=== PATIENT | female | born 1935 | race Caucasian/White ===

== ENCOUNTER → 2017-03-10 | Outpatient (CLI) | payer OTHER, BC ==
[~2017-03-10] MED LIST: ACIPHEX 20 MG T20 M1; ACIPHEX 20 MG T20 MG PO; ASPIR 8181 MG PO; ASPIRIN EC325 M1; ASPIRIN EC81 M1 PO; AZITHROMYCIN 2250 MG PO; COUMADIN 5 MG TA5 M1 PO; ENOXAPARIN80 MG/0.1 SUBQ; FELODIPINE ER10 MG PO; FERREX 150 PLU1 EAC1 PO; HYDROCHLOROTHIA25 M1 PO; IRON325 PO; KLOR-CON 1010 MEQ PO; LEVOTHYROXIN0.125 M1; LEVOTHYROXINE 0.1 MG PO; LISINOPRIL20 MG PO; LOPRESSOR50 PO; MAG DELAY64 MG PO; MAGOX 400400 MG PO; PLAVIX 75 MG TA75 M1 PO; PROTONIX 20 MG20 M1 PO; SYSTANE 0.3-0.1 EACH OPHTHALMIC; VITAMIN B-12500 MCG PO; WELCHOL 625 MG625 M1 PO; XANAX 0.5 MG0.5 MG PO
== END ==
LOC: RAD 01:35
DX: Z12.31 Encounter for screening mammogram for malignant neoplasm of breast (principal)

== ENCOUNTER → 2017-03-14 | Outpatient (CLI) | payer OTHER, BC | LOC: ULTRA 09:19 | DX: N60.01 Solitary cyst of right breast (principal) ==

== ENCOUNTER → 2017-07-15 | Outpatient (CLI) | payer OTHER, BC | LOC: RAD 08:08 | DX: R91.1 Solitary pulmonary nodule (principal); N17.9 Acute kidney failure, unspecified; I10 Essential (primary) hypertension; K21.9 Gastro-esophageal reflux disease without esophagitis; E78.5 Hyperlipidemia, unspecified; I69.398 Other sequelae of cerebral infarction; Z90.49 Acquired absence of other specified parts of digestive tract; Z90.710 Acquired absence of both cervix and uterus; Z87.891 Personal history of nicotine dependence ==

== ENCOUNTER 2019-06-03 08:56 | Inpatient (IN) | payer OTHER, BC ==
[~2019-06-03] VITALS: Ht 157.5 cm; Wt 79.1 kg
[~2019-06-03 08:56] MED LIST changes: -LEVOTHYROXINE 0.1 MG PO; +LEVOTHYROXINE88 MCG PO
[2019-06-03 08:57] VITALS: BP 230/105
[2019-06-03 10:03] LABS: ABSOLUTE NEUTROPHILS 3.5 thou/uL (1.4-8.2); EOSINOPHILS 2.2 % (0.0-3.0); HEMOGLOBIN 12.1 gm/dL (12.0-15.0); LYMPHOCYTES 24.4 % (24.0-44.0); MCH 27.4 pg (26.0-34.0); MCHC 31.7 g/dL (28.0-37.0); MCV 86.2 fL (80.0-100.0); MONOCYTES 8.8 % (1.0-8.0); PLATELET COUNT 274 thou/uL (150-400); POLYS 63.6 % (36.0-66.0); RBC 4.41 mil/uL (4.20-5.00); RDW 15.3 % (10.5-14.5); WBC 5.5 thou/uL (4.0-11.0)
[2019-06-03 10:20] LABS: APTT 30.2 Seconds (24.5-32.8); PROTIME 9.8 Seconds (9.3-11.4)
[2019-06-03 10:23] LABS: CALCIUM 9.6 mg/dL (8.5-10.1); CREATININE 1.2 mg/dL (0.6-1.0); POTASSIUM 4.6 mmol/L (3.5-5.1)
[2019-06-03 10:33] LABS: ALBUMIN 3.1 g/dL (3.4-5.0); MAGNESIUM 1.6 mg/dL (1.8-2.4); TOTAL BILIRUBIN 0.4 mg/dL (<0.1-1.0); TOTAL PROTEIN 6.5 g/dL (6.4-8.2); TROPONIN-I 0.13 ng/mL (<0.06)
[2019-06-03] MEDS ORDERED: ELIQUIS5 MG PO (10:42)
[2019-06-03] MEDS ORDERED: COLESTIPOL HCL1 G1 PO (10:43)
[2019-06-03] MEDS ORDERED: ZETIA10 MG PO (10:43)
[2019-06-03] MEDS ORDERED: PRESERVISION T1 EACH PO (10:44)
[2019-06-03] MEDS ORDERED: ACIPHEX 20 MG T20 MG PO (10:52)
[2019-06-03 13:20] LABS: TSH 6.307 uIU/mL (0.358-3.740)
--- NOTE | 2019-06-03 14:18 | NUR ---
PATIENT ADMITTED TO ROOM AT THIS TIME. RESPIRATIONS ARE NON LABORED. ON ROOM AIR. PLEASANT COOPERATIVE WITH CARE. NO COMPLAIN OF PAIN AT THIS TIME. WILL CONT WITH PLAN OF CARE.
--- NOTE | 2019-06-03 15:55 | 2DMMODE ---
[facility] [address] [place] [address] 2 D/M-MODE ECHOCARDIOGRAM Name: SHEYLA CID BRIANNA Room #: 170-24 ADM IN ..#: [id number] Admission: 06/03/19 Attend Phys: Ernesto Hayes MD Discharge: Date of : 37 Report #: [id number] THIS REPORT FOR: //name// APPROVED REPORT Study performed: 06/03/2019 12:48:38 EXAM: Comprehensive 2D, Doppler, and color-flow Echocardiogram Patient Location: ER Room #: 6 Status: routine BSA: 1.79 HR: 6 bpm BP: 166/60 mmHg Rhythm: NSR Other Information Study Quality: Good Indications COPD Dyspnea Elevated Troponin Hypertension/HDD 2D Dimensions RVDd: 32.17 mm IVSd: 8.48 (7-11mm) LVOT Diam: 19.99 (18-24mm) LVDd: 49.32 mm PWd: 8.46 (7-11mm) Ascending Ao: 31.35 (22-36mm) LVDs: 34.41 (25-40mm) Aortic Root: 30.21 mm IVC: 18.00 mm Volumes Left Atrial Volume (Systole) Single Plane 4CH: 47.59 mL Single Plane 2CH: 53.04 mL LA ESV Index: 31.00 mL/m2 Aortic Valve AoV Peak Jose Francisco.: 1.75 m/s AO Peak Gr.: 12.27 mmHg LVOT Max P.20 mmHg LVOT Max V: 1.02 m/s LURDES Vmax: 1.84 cm2 Mitral Valve [facility] [address] [address] 2 D/M-MODE ECHOCARDIOGRAM Name: SHEYLA CID BRIANNA Room #: 170-24 [facility] IN [facility].#: [id number] Admission: 06/03/19 Attend Phys: Ernesto Hayes MD Discharge: Date of : 36 Report #: [id number] E/A Ratio: 1.5 MV Decel. Time: 179.28 ms MV E Max Jose Francisco.: 1.18 m/s MV A Jose Francisco.: 0.81 m/s MV PHT: 51.99 ms IVRT: 69.20 ms Pulmonary Valve PV Peak Jose Francisco.: 1.03 m/s PV Peak Gr.: 4.27 mmHg Pulmonary Vein P Vein S: 0.48 m/s P Vein A: 0.38 m/s P Vein D: 0.62 m/s P Vein A Dur.: 143.0 msec P Vein S/D Ratio: 0.77 Left Ventricle The left ventricle is normal size. There is normal LV segmental wall motion. There is normal left ventricular wall thickness. The left ventricular systolic function is normal. The left ventricular ejection fraction is within the normal range. LVEF is 55-60%. The left ventricular diastolic function is abnormal. Right Ventricle The right ventricle is normal size. The right ventricular systolic function is normal. Atria The left atrium size is normal. The right atrium size is normal. Aortic Valve The aortic valve is trileaflet, mildly sclerotic No aortic regurgitation is present. There is no aortic valvular stenosis. Mitral Valve Mild mitral annular calcification Moderate mitral regurgitation. No evidence of mitral valve stenosis. Tricuspid Valve The tricuspid valve is normal in structure. There is no tricuspid valve regurgitation noted. Pulmonic Valve The pulmonary valve is normal in structure. There is no pulmonic valvular regurgitation. [facility] [place] [address] 2 D/M-MODE ECHOCARDIOGRAM Name: SHEYLA CID BRIANNA Room #: 170-24 ADM IN M.R.#: [id number] Admission: 06/03/19 Attend Phys: Ernesto Hayes MD Discharge: Date of : 36 Report #: [id number] Great Vessels The aortic root is normal in size. IVC is normal in size and collapses >50% with inspiration. Pericardium There is no pericardial effusion. <Conclusion> The left ventricular systolic function is normal. There is normal LV segmental wall motion. LVEF is 55-60%. The aortic valve is trileaflet, mildly sclerotic. No aortic regurgitation or stenosis Mild mitral annular calcification. Moderate mitral regurgitation. There is no pericardial effusion. <ELECTRONICALLY SIGNED> By: Jayant Banks MD, FACC 06/03/19 1555 1555 1555 Jayant Banks MD, [facility] /INF
[2019-06-03 19:16] VITALS: BP 193/67
[2019-06-04 00:19] VITALS: BP 193/65
[2019-06-04 03:56] VITALS: BP 181/59
[2019-06-04 04:00] LABS: ABSOLUTE NEUTROPHILS 5.6 thou/uL (1.4-8.2); BASOPHILS 0.3 % (0.0-2.0); HEMOGLOBIN 10.9 gm/dL (12.0-15.0); LYMPHOCYTES 8.1 % (24.0-44.0); MCH 27.6 pg (26.0-34.0); MCV 86.1 fL (80.0-100.0); MONOCYTES 0.7 % (1.0-8.0); PLATELET COUNT 257 thou/uL (150-400); POLYS 90.9 % (36.0-66.0); RBC 3.95 mil/uL (4.20-5.00); RDW 15.3 % (10.5-14.5); WBC 6.2 thou/uL (4.0-11.0)
[2019-06-04 04:07] LABS: ANION GAP 8 mmol/L (7-16); BUN 25 mg/dL (7-18); CALCIUM 8.9 mg/dL (8.5-10.1); CHLORIDE 107 mmol/L (98-107); CHOLESTEROL 214 mg/dL (<200); CO2 23 mmol/L (21-32); CREATININE 1.3 mg/dL (0.6-1.0); GLUCOSE 145 mg/dL (74-106); HDL CHOLESTEROL 68 mg/dL (>40); LDL CHOLESTEROL 132 mg/dL (<100); POTASSIUM 5.3 mmol/L (3.5-5.1); SODIUM 138 mmol/L (136-145); TC:HDL 3.1 Ratio (Not establshd); TRIGLYCERIDE 73 mg/dL (<150); TROPONIN-I 0.25 ng/mL (<0.06); VLDL 15 mg/dL (<40)
[2019-06-04 04:09] LABS: SERUM ASSESSMENT Clear
--- NOTE | 2019-06-04 04:49 | NUR ---
ASSUMED PT CARE AT 1900. DAUGTHER AT BEDSIDE PT IS ALERT AND ORIENTED. NO SIGN OF DISTRESS NOTED. PT IS LAYING IN BED RESTING COMFORTABLY. ASSESSMENT COMPLETED AND DOCUMENTED. VITAL SIGNS STABLE WITH THE EXCEPTION OF ELEVATED BLOOD PRESSURE. NO NOTIFIED. METOPROLOL ADMINISTERED. OTHER SCHEDULED MEDS ADMINSTERED TO PT. BLOOD PRESSURE RECHECKED. STILL ELEVATED, HYDRALAZINE ADMINISTERED. PT COMPLAINED OF CHEST PAIN AFTER BREATHING TREATMENT IS ADMINISTERED. PT REFUSES ANYMRE BREATHING TREATMENT. PT IS STABLE THROUGHOUT THE NIGHT. DENIES ANY FURTHER NEEDS AT THIS TIME.
[2019-06-04 06:06] VITALS: BP 171/52
[2019-06-04 07:20] VITALS: BP 176/69
--- NOTE | 2019-06-04 08:33 | EKG ---
[address] [address] ELECTROCARDIOGRAM REPORT Name: SHEYLA CID BRIANNA Room #: 202-P ADM IN M.R.#: [id number] Admission: 06/03/19 Attend Phys: Ernesto Hayes MD Discharge: Date of : 36 Report #: [id number] THIS REPORT FOR: //name// [facility] ED Test Date: 2019-06-03 Test Time: 09:15:07 Pat Name: SHEYLA CID Department: Room: 202 Gender: F Senior Telecommunications Engineer: samara : 1935 Requested By: Saeed Murphy Order Number: [id number] MD: Jayant Banks Measurements Intervals [place] Rate: 71 P: 98 CT: 195 QRS: 51 QRSD: 126 T: 26 QT: 394 QTc: 429 Interpretive Statements Sinus arrhythmia Right bundle branch block Compared to ECG 10/09/2015 14:31:05 Right bundle-branch block now present Atrial premature complex(es) no longer present Electronically Signed On 06-04-2019 8:33:08 CDT by Jayant Banks [email or web address] <ELECTRONICALLY SIGNED> By: Jayant Banks MD, FAC 06/04/19 0833 Jayant Banks MD, [facility] /EPI
--- NOTE | 2019-06-04 08:49 | EKG ---
[address] [place] [address] ELECTROCARDIOGRAM REPORT Name: SHEYLA CID BRIANNA Room #: 202-P ADM IN M.R.#: [id number] Admission: 06/03/19 Attend Phys: Ernesto Hayes MD Discharge: Date of : 36 Report #: [id number] THIS REPORT FOR: //name// [facility] Test Date: 2019-06-04 Test Time: 07:19:43 Pat Name: SHEYLA CID Department: Room: 202 P Gender: F Branch Lending Manager: SHYLA : 1935 Requested By: Shae Schaefer Order Number: [id number] MD: Jayant Banks Measurements Intervals [place] Rate: 76 P: 66 CO: 200 QRS: 28 QRSD: 133 T: 3 QT: 408 QTc: 459 Interpretive Statements Sinus rhythm Right bundle branch block Compared to ECG 10/09/2015 14:31:05 No significant change was found Electronically Signed On 06-04-2019 8:49:39 CDT by Jayant Banks [email or web address] <ELECTRONICALLY SIGNED> By: Jayant Banks MD, [facility] 06/04/19 0849 8 8 Jayant Banks MD, FAC /EPI
[2019-06-04 12:05] VITALS: BP 178/62
--- NOTE | 2019-06-04 16:11 | NUR ---
Chart reviewed and case discussed with the care team. Technology Consultant visited with the pt and dtr tonie at bedside. Pt concerned about stress test and if medicare would pay for it. Questions about medicare benefits answered and support provided. Pt is a&ox4 and indicates that she lives indep with her spouse. She does all of her own adl's and iadl's for her spouse as well. She reports that he can manage on his own for a day or two. She is hoping to dc home soon. She denies any dc needs or concerns and her dtr is very involved. Cm role introduced. Will remain available should dc needs arise.
--- NOTE | 2019-06-04 17:39 | NUR ---
PT CARE ASSUMED APPROX 1045. ASSESSMENTS CHARTED. PT DENIES PAIN AND SOA. BP ELEVATED MOST OF SHIFT. PT WAS NPO AND NUC MED ADVISED AGAINST GIVING ALL BP MEDS. MEDS CAUGHT UP THIS EVENING. WILL MONITOR BP FOR IMPROVEMENT. VS OTHERWISE STABLE. DAUGHTER AT BEDSIDE MOST OF DAY. BOTH GIVEN CLINICAL UPDATES AND DENY QUESTIONS OR CONCERNS REGARDING POC. PT TOLERATING POC. UP WITH SBA. NO DISTRESS NOTED.
[2019-06-04 20:27] VITALS: BP 168/58
[2019-06-05] VITALS (7 sets, daily range): BP systolic 168–189; BP diastolic 46–79
[2019-06-05 03:59] LABS: HEMATOCRIT 35.5 % (37.0-47.0); HEMOGLOBIN 11.3 gm/dL (12.0-15.0); MCH 27.3 pg (26.0-34.0); MCHC 31.8 g/dL (28.0-37.0); RBC 4.13 mil/uL (4.20-5.00); RDW 15.4 % (10.5-14.5); WBC 9.7 thou/uL (4.0-11.0)
[2019-06-05 04:06] LABS: CREATININE 1.4 mg/dL (0.6-1.0); POTASSIUM 4.7 mmol/L (3.5-5.1)
--- NOTE | 2019-06-05 05:50 | NUR ---
ASSUMED PT CARE AT 1900. VSS EXCEPT BP. PT A&0X4. ASSESSMENTS AND MEDS GIVEN DOCUMENTED, PT REFUSED SCHEDULED BREATHING TX, STATED SHE DOESNT LIKE THE WAY IT MAKES HER FEEL. PT BP HOWEVER IS TRENDING DOWN, TWO DOSES OF HYDRALIZINE WAS GIVEN THIS SHIFT. PT HAD AN ANXIOUS/TEARFUL MOMENT AROUND 2AM THIS MORNIRNG, HYDROXYZINE GIVEN AND PT SLEPT FOR THE REST OF THE NIGHT, PT IS STABLE, WILL CONTINUE TO MONITOR PER POC.
--- NOTE | 2019-06-05 16:19 | NUR ---
PT CARE ASSUMED APPROX 0700. PT ASSESSMENT CHARTED. DENIES PAIN AND SOA. VSS. UP WITH STEADY GAIT. FAMILY AT BEDSIDE MOST OF SHIFT. POC UPDATES GIVEN. ALL DENY QUESTIONS AND CONCERNS REGARDING POC. PT TOLERATING POC. NO DISTRESS NOTED.
[2019-06-06] VITALS (7 sets, daily range): BP systolic 120–192; BP diastolic 53–69
--- NOTE | 2019-06-06 03:39 | NUR ---
ASSESSMENT DOCUMENTED.PT BEEN RESTINGN IN NO ACUTE DISTRESS.A/OX4.VSS.RA W/O RESP DISTRESS.SR ON MONITOR.AMBULATED TO BR,VOIDING ADEQUATELY.PT DENIES PAIN OR ANY DISTRESS AT THIS TIME.BLOOD PRESSURE TREATED WITH PRN MEDS.WILL CONTW/POC.
[2019-06-06 04:53] LABS: CALCIUM 9.2 mg/dL (8.5-10.1); CREATININE 1.4 mg/dL (0.6-1.0); MAGNESIUM 1.9 mg/dL (1.8-2.4); POTASSIUM 4.8 mmol/L (3.5-5.1)
--- NOTE | 2019-06-06 17:10 | NUR ---
PT CARE ASSUMED APPROX 0700. ASSESSMENTS CHARTED. PT DENIES PAIN AND SOA. BP ELEVATED. CHANGES TO POC MADE THIS AM TO TREAT HTN BUT PT BP REMAINS ELEVATED. WILL UTILIZE PRN MEDS OPTIONS FOR MANAGEMENT AT THIS POINT. PT TOLERATING POC AND DENIES QUESITONS AND CONCERNS REGARDING. NO DISTRESS NOTED.
[2019-06-07 04:04] VITALS: BP 171/53
--- NOTE | 2019-06-07 05:06 | NUR ---
ASSESSMENTS CHARTED, MEDS GIVEN CHARTED. PATIENT STARTED SHIFT WITH IV IN LEFT AC WHICH LEAKED WHEN USED. PATIENT HAD NO VISIBLE OR PALPITABLE VEINS, SO WE HAD TO WAIT FOR ER STAFF TO COME UP WITH THE SONOGRAM MACHINE TO PLACE A NEW IV IN THE RIGHT AC. HYDRALAZINE GIVEN FOR ELEVATED BLOOD PRESSURE. PATIENT REQUESTED HYDROXAZINE AGAIN. RECEIVED ORDER FROM SONNY FOR DAILY HYDROXAZINE AT HS. PATIENT ON LASIX THERAPY, DIURESING WELL. PLAN FOR STRESS TEST TODAY.
[2019-06-07 06:03] LABS: CALCIUM 9.6 mg/dL (8.5-10.1); CREATININE 1.6 mg/dL (0.6-1.0); POTASSIUM 4.7 mmol/L (3.5-5.1)
[2019-06-07 07:10] VITALS: BP 195/61
[2019-06-07 11:15] VITALS: BP 154/54
[2019-06-07 14:29] LABS: CALCIUM 9.7 mg/dL (8.5-10.1); CREATININE 1.8 mg/dL (0.6-1.0); POTASSIUM 5.3 mmol/L (3.5-5.1)
[2019-06-07 15:40] VITALS: BP 161/49
--- NOTE | 2019-06-07 16:35 | NUR ---
PT CARE ASSUMED APPROX 0700. ASSESSMENTS CHARTED. PT DENIES PAIN AND SOA. BP ELEVATED DESPITE CHANGES TO POC. PT WAS TO DISCHARGE THIS SHIFT BUT NO ORDERS WERE PUT IN. CALL OUT TO DR ANDERSON AT THIS TIME TO CLARIFY IF PT IS TO GO. PT UP WITH STEADY GAIT. VS OTHERWISE STABLE. DAUGHTER AT BEDSIDE. NO DISTRESS NOTED.
--- NOTE | 2019-06-07 17:56 | NUR ---
PT WANTING NEW IVF STARTED AFTER HER SHOWER. FINISHING DINNER DOWN THEN WILL SHOWER. IF END OF SHIFT APPROACHES BEFORE IVF INITIATION THIS NURSE WILL PASS ON TO BRIAN RN.
[2019-06-07 20:54] VITALS: BP 162/51
[2019-06-08] VITALS (8 sets, daily range): BP systolic 103–201; BP diastolic 35–73
--- NOTE | 2019-06-08 02:52 | NUR ---
ASSESSMENTS CHARTED, MEDS GIVEN CHARTED. 1700 FLUIDS WERE NOT STARTED THE PATIENT WANTED TO TAKE A SHOWER PRIOR TO STARTED IT. IT WAS NOT STARTED ON DAY SHIFT. WHEN THE ACCESS WAS FLUSHED, IT WAS FOUND TO BE CLOTTED OFF. NO SITES WERE IDENTIFIED TO START A NEW IV AND THE ELEVATOR TROUBLESHOOTER WAS CALLED. SHE OK'D ER TO COME UP AND START A NEW IV USING THE SONIGRAM MACHINE. IV MEDS HAVE YET TO BE GIVEN WAITING ON ACCESS. PATIENT IS PLANNING ON BEING DISCHARGED IN THE AM.
[2019-06-08 04:58] LABS: CALCIUM 9.5 mg/dL (8.5-10.1); CREATININE 1.8 mg/dL (0.6-1.0); MAGNESIUM 1.8 mg/dL (1.8-2.4)
[2019-06-08 05:00] LABS: POTASSIUM 4.2 mmol/L (3.5-5.1)
[2019-06-08 14:36] LABS: POTASSIUM 3.7 mmol/L (3.5-5.1)
[2019-06-08 15:20] LABS: CALCIUM 8.5 mg/dL (8.5-10.1); CREATININE 1.9 mg/dL (0.6-1.0)
--- NOTE | 2019-06-08 17:47 | NUR ---
ASSUMMED PT CARE AT APPROXIMATELY 0700. PT A&O X4. ASSESSMENT CHARTED. FALL PRECAUTIONS IN PLACE. PT DENIES HAVING CHEST PAIN. PT DENIES HAVING SOB. PT DENIES HAVING ACUTE PAIN. VITAL SIGNS STABLE. MONITORING BP. PT'S BP ELEVATED IN AM. AFTER MORNING MEDICATIONS, PT'S BP DECREASE TO STABLE VALUE. PT'S BP HAS REMAINED STABLE. STATED TO CONTINUE MONITORING BP. EDUCATED PT AND PT'S FAMILY OF POC. PT AND PT'S FAMILY STATED UNDERSTANDING AND DENIED HAVING FURTHER QUESTIONS. PT COMFORTABLE IN BED. PT DENIES HAVING FURTHER CONCERNS.
[2019-06-09 04:00] VITALS: BP 132/40
--- NOTE | 2019-06-09 05:18 | NUR ---
PT ALERT AND ORIENTED X4. PT PROGRESSING TOWARDS GOAL.
[2019-06-09 05:27] LABS: ALBUMIN 2.4 g/dL (3.4-5.0); CREATININE 1.9 mg/dL (0.6-1.0)
[2019-06-09 07:20] VITALS: BP 151/67
[2019-06-09] MEDS ORDERED: ELIQUIS2.5 MG PO (09:14)
[2019-06-09] MEDS ORDERED: IPRAT-ALBUT 0.5-3 ML INH (09:14)
[2019-06-09] MEDS ORDERED: HYDRALAZINE 5050 MG PO (09:15)
[2019-06-09] MEDS ORDERED: NITROGLYCERIN0.4 MG SUBLING (09:16)
[2019-06-09] MEDS ORDERED: LOPRESSOR50 PO (09:17)
[2019-06-09] MEDS ORDERED: TYLENOL325 MG PO (09:18)
[2019-06-09] MEDS ORDERED: XANAX 0.5 MG0.5 M1 PO (09:19)
[2019-06-09] MEDS ORDERED: PREDNISONE 20 M20 MG PO (09:22)
[2019-06-09] MEDS ORDERED: LASIX 40 MG TAB40 MG PO (10:43)
[2019-06-09 12:10] VITALS: BP 141/54
[2019-06-09 12:34] VITALS: BP 141/54
--- NOTE | 2019-06-09 14:17 | NUR ---
ASSUMMED PT CARE AT APPOXIMATELY 0700. PT A&O X4. ASSESSMENT CHARTED. FALL PRECAUTIONS IN PLACE. PT DENIES HAVING CHEST PAIN. PT DENIES HAVING SOB. PT DENIES HAVING ACUTE PAIN. VITAL SIGNS STABLE. PT AMBULATES STEADY/INDEPENDENT. IV DC. TELE DC. PT DISCHARGING HOME WITH SELF CARE. PT AND FAMILY RECEIVED DISHCARGE EDUCATION. PT AND FAMILY STATED UNDERSTANDING AND DENIED HAVING FURTHER QUESTIONS. PT RECEIVING HOSPITAL TRANSPORT TO TRANSFER PT OFF UNIT. PT DENIES HAVING FURTHER CONCERNS. PT AWAITING HOSPITAL TRANSPORT TO ARRIVE.
--- NOTE | 2019-06-17 07:41 | HC ---
[facility] [place] [address] CONSULTATION Name: SHEYLA CID Room #: 202-P [facility] IN M.R.#: [id number] Admission: 06/03/19 Attend Phys: Ernesto Hayes MD Discharge: 06/09/19 Date of : 36 Report #: [id number] THIS REPORT FOR: //name// CC: Ernesto Ennis DATE OF SERVICE: 06/09/2019 REASON FOR CONSULTATION: Elevated creatinine. REASON FOR PRESENTATION: Shortness of breath. HISTORY OF PRESENT ILLNESS: This is an 84-year-old with extensive past medical history including hypertension, hyperlipidemia, remote history of CVA. She is also known to have DVT, PE with COPD. She has history of hypothyroidism. She presented to the hospital reporting that she has been having some epigastric pain that has been progressing over the few days before her presentation. She also had some shortness of breath. This was associated with respiratory distress that woke her from sleep. She denies any previous similar episodes. No cough or hemoptysis. No recent upper respiratory tract infection symptoms. On presentation to the Emergency Room, the patient was found to be in hypertensive urgency. She had a creatinine value of 1.20 on her presentation. She also reported that she had some issues with chronic bilateral lower extremity swelling. The patient was at another facility a few days ago and left that facility because she was unhappy with her care. She saw her primary care physician a few days before her presentation and was started on some blood pressure medication. With the blood pressure coming down from 224 on her presentation to around 130 range yesterday, her creatinine started to go up from a baseline of 1.2-1.9 as of this morning. PAST MEDICAL HISTORY: 1. Hypertension. 2. Cerebrovascular accident. 3. Left knee replacement. 4. Hysterectomy. 5. Cholecystectomy. 6. Hyperlipidemia. 7. Barajas esophagus. 8. Peripheral vascular disease. 9. Deep venous thrombosis and pulmonary embolism back in 2013. MEDICATIONS: 1. Felodipine. 2. Lisinopril. 3. Levothyroxine. 4. Metoprolol. [facility] [address] [place] [address] CONSULTATION Name: SHEYLA CID MILLWOOD Room #: 202-P [facility].#: [id number] Admission: 06/03/19 Attend Phys: Ernesto Hayes MD Discharge: 06/09/19 Date of : 36 Report #: [id number] 5. Eliquis. 6. Colestipol. 7. Ezetimibe. 8. Aripiprazole. ALLERGIES: LATEX, SULFA. SOCIAL HISTORY: She denies drug or alcohol abuse. She is a housewife. REVIEW OF SYSTEMS: GENERAL: No fever or chills. CARDIOVASCULAR: No chest pain; however, significant shortness of breath. PULMONARY: As per the history of present illness. GASTROINTESTINAL: No nausea or vomiting. GENITOURINARY: No frequency, no urgency. SKIN: No rash or ulcerations. NEUROLOGICAL: No headache, no dizziness, no loss of consciousness. FAMILY HISTORY: Significant for hypertension. PHYSICAL EXAMINATION: VITAL SIGNS: Blood pressure is 151/42, temperature is 36.5. HEAD AND NECK: No jugular venous distention. CHEST: No crackles. CARDIOVASCULAR: No rub detected. ABDOMEN: Soft, nontender. LOWER EXTREMITIES: Trace edema. LABORATORY DATA: Reviewed. Creatinine is 1.9. Potassium is 4.0. UA is not available. Chest x-ray with no acute process. IMPRESSION AND PLAN: 1. Hypertensive urgency. 2. Acute kidney injury. 3. The patient's rise in creatinine is expected with the significant reduction in the blood pressure. This is all related to hemodynamic changes of the renal arteries. 4. Discontinue IV fluid. 5. Blood pressure reading seems to be acceptable for now. Avoid further reduction. She is currently maintained on Benicar, Norvasc, metoprolol, hydralazine and there is still some room for hydralazine to be titrated up. However, I will not do any further adjustment of her medications given the acute kidney injury. Once we stabilize her creatinine, we could further adjust her [address] [address] CONSULTATION Name: SHEYLA CID MILLWOOD Room #: [facility] IN M.R.#: [id number] Admission: 06/03/19 Attend Phys: Ernesto Hayes MD Discharge: 06/09/19 Date of : 36 Report #: [id number] blood pressure medication. Ideally, she should be on a thiazide diuretic for her blood pressure will beside the current blood pressure medications. <ELECTRONICALLY SIGNED> By: Daniel Salgado MD 06/17/19 0741 0923 0039 Daniel Salgado MD /nt
== END 2019-06-09 15:52 | disposition home or self-care (01) | DRG 190 ==
LOC: ER 08:56 → EROBS 11:57 → 2N 11:57 → ENTRNSPT 06-09 14:17 → EDTRNSPTSTS 06-09 14:18 → 2N 06-09 15:52
PROVIDERS: Emergency Medicine; Hospitalist; Internal Medicine; Nurse Practitioner; ADMIT Hospitalist
DX: J44.1 Chronic obstructive pulmonary disease with (acute) exacerbation (principal); E43 Unspecified severe protein-calorie malnutrition; N17.9 Acute kidney failure, unspecified; G93.49 Other encephalopathy; I50.30 Unspecified diastolic (congestive) heart failure; I13.0 Hypertensive heart and chronic kidney disease with heart failure and stage 1 through stage 4 chronic kidney disease, or unspecified chronic kidney disease; I16.0 Hypertensive urgency; E78.5 Hyperlipidemia, unspecified; K21.9 Gastro-esophageal reflux disease without esophagitis; M19.90 Unspecified osteoarthritis, unspecified site; Z96.652 Presence of left artificial knee joint; E83.42 Hypomagnesemia; I73.9 Peripheral vascular disease, unspecified; I48.0 Paroxysmal atrial fibrillation; Z66 Do not resuscitate; D64.9 Anemia, unspecified; N18.3 Chronic kidney disease, stage 3 (moderate); E03.9 Hypothyroidism, unspecified; F03.90 Unspecified dementia, unspecified severity, without behavioral disturbance, psychotic disturbance, mood disturbance, and anxiety; Z68.31 Body mass index [BMI] 31.0-31.9, adult; Z87.19 Personal history of other diseases of the digestive system; Z86.718 Personal history of other venous thrombosis and embolism; Z86.711 Personal history of pulmonary embolism; Z88.2 Allergy status to sulfonamides; Z88.8 Allergy status to other drugs, medicaments and biological substances; Z91.040 Latex allergy status; Z79.899 Other long term (current) drug therapy; Z90.710 Acquired absence of both cervix and uterus; Z90.49 Acquired absence of other specified parts of digestive tract; Z87.891 Personal history of nicotine dependence; I25.2 Old myocardial infarction; I69.320 Aphasia following cerebral infarction
CPT/HCPCS: 10081

== ENCOUNTER 2019-06-29 16:10 | Inpatient (IN) | payer OTHER, BC ==
[~2019-06-29] VITALS: Ht 157.5 cm; Wt 78.7 kg
[2019-06-29 16:10] VITALS: BP 192/81
[~2019-06-29 16:10] MED LIST changes: +COLESTIPOL HCL1 G1 PO; +ELIQUIS2.5 MG PO; +ELIQUIS5 MG PO; +HYDRALAZINE 5050 MG PO; +IPRAT-ALBUT 0.5-3 ML INH; +LASIX 40 MG TAB40 MG PO; +NITROGLYCERIN0.4 MG SUBLING; +PREDNISONE 20 M20 MG PO; +PRESERVISION T1 EACH PO; +TYLENOL325 MG PO; +XANAX 0.5 MG0.5 M1 PO; +ZETIA10 MG PO
--- NOTE | 2019-06-29 17:15 | NUR ---
LAB CALLED TO DRAW BLOOD FOR PT IV TEAM UNSUCCESSFUL
--- NOTE | 2019-06-29 18:51 | NUR ---
LAB CALLED AGAIN TO REQUEST FOR LAB DRAW. SPOKE WITH [facility] WHO STATES THEY WILL SEND SOMEONE TO DRAW
[2019-06-29 19:17] LABS: ABSOLUTE NEUTROPHILS 3.9 thou/uL (1.4-8.2); BASOPHILS 0.9 % (0.0-2.0); EOSINOPHILS 3.2 % (0.0-3.0); HEMATOCRIT 31.1 % (37.0-47.0); HEMOGLOBIN 10.1 gm/dL (12.0-15.0); LYMPHOCYTES 18.1 % (24.0-44.0); MCH 27.6 pg (26.0-34.0); MCHC 32.4 g/dL (28.0-37.0); MCV 85.3 fL (80.0-100.0); MONOCYTES 8.6 % (1.0-8.0); PLATELET COUNT 283 thou/uL (150-400); POLYS 69.2 % (36.0-66.0); RBC 3.65 mil/uL (4.20-5.00); RDW 15.4 % (10.5-14.5); WBC 5.7 thou/uL (4.0-11.0)
[2019-06-29 19:27] LABS: ANION GAP 8 mmol/L (7-16); BUN 28 mg/dL (7-18); CALCIUM 9.7 mg/dL (8.5-10.1); CHLORIDE 105 mmol/L (98-107); CO2 27 mmol/L (21-32); CREATININE 1.3 mg/dL (0.6-1.0); GLUCOSE 111 mg/dL (74-106); POTASSIUM 3.8 mmol/L (3.5-5.1); SODIUM 140 mmol/L (136-145)
[2019-06-29 19:31] LABS: APTT 30.8 Seconds (24.5-32.8)
[2019-06-29 19:37] LABS: ALBUMIN 2.9 g/dL (3.4-5.0); MAGNESIUM 1.4 mg/dL (1.8-2.4); SGOT 14 U/L (15-37); SGPT 26 U/L (30-65); TOTAL BILIRUBIN 0.4 mg/dL (<0.1-1.0); TOTAL PROTEIN 5.6 g/dL (6.4-8.2); TROPONIN-I <0.06 ng/mL (<0.06)
[2019-06-29 20:07] VITALS: BP 166/48
[2019-06-29 20:22] VITALS: BP 179/65
--- NOTE | 2019-06-29 20:24 | NUR ---
ED NURSE CALLED TO GIVE REPORT TO INPATIENT NURSE, WAS TOLD THE NURSE WAS IN ANOTHER ROOM AND WOULD HAVE TO CALL ME BACK
[2019-06-29 20:36] VITALS: BP 146/71
[2019-06-29] MEDS ORDERED: TORSEMIDE10 MG PO (22:59)
[2019-06-30 00:45] VITALS: BP 140/52
[2019-06-30 04:44] VITALS: BP 149/59
--- NOTE | 2019-06-30 05:22 | NUR ---
ASSUMED PT CARE AROUND 2100. PT NEW ADMIT FROM ED. ADMISSION COMPLETED AND ASSESSMENTS CHARTED. PT DTR BEDSIDE AND COPY OF MEDICATION LIST IS IN PT CHART. PT VSS AND NO C/O PAIN, SOB, OR N/V/D. PT SLEPT THRU NIGHT AND WILL CONTINUE TO MONITOR.
[2019-06-30 05:30] LABS: CALCIUM 9.1 mg/dL (8.5-10.1); CREATININE 1.4 mg/dL (0.6-1.0); MAGNESIUM 2.3 mg/dL (1.8-2.4); POTASSIUM 3.8 mmol/L (3.5-5.1)
[2019-06-30 05:39] LABS: HEMATOCRIT 26.8 % (37.0-47.0); HEMOGLOBIN 8.7 gm/dL (12.0-15.0); MCH 27.7 pg (26.0-34.0); MCHC 32.3 g/dL (28.0-37.0); MCV 85.5 fL (80.0-100.0); RBC 3.13 mil/uL (4.20-5.00); RDW 15.3 % (10.5-14.5); WBC 4.2 thou/uL (4.0-11.0)
[2019-06-30 07:53] VITALS: BP 153/58
--- NOTE | 2019-06-30 08:19 | EKG ---
[address] [address] ELECTROCARDIOGRAM REPORT Name: SHEYLA CID BRIANNA Room #: 212-P ADM IN M.R.#: [id number] Admission: 06/29/19 Attend Phys: Hu Kelly MD Discharge: Date of : 36 Report #: [id number] THIS REPORT FOR: //name// [facility] ED Test Date: 2019-06-29 Test Time: 16:27:42 Pat Name: SHEYLA CID Department: Room: 212 Gender: F Design Draftsman: WG : 1935 Requested By: Saeed Murphy Order Number: [id number] MD: Rios Hicks Measurements Intervals [place] Rate: 79 P: [place]: QRS: 37 QRSD: 128 T: 13 QT: 389 QTc: 447 Interpretive Statements Sinus rhythm with PACs RBBB Electronically Signed On 06-30-2019 8:19:30 [facility] by Rios Hicks [email or web address] <ELECTRONICALLY SIGNED> By: Rios Hicks MD 06/30/19818 1627 1627 Rios Hicks MD /RICCI
[2019-06-30 11:53] VITALS: BP 160/52
--- NOTE | 2019-06-30 11:57 | NUR ---
met with patient who resides at home with spouse in independent home. All needs on one level, a few steps from garage to main level. Patient reports uses no assistive device correctional captain and cont to drive. Dtr at bedside and discussed HH may be beneficial at dc to monitor if she retaining fluid and medication/vitals. Left patient list of home health providers, updated phys. Therapy evals in process. Her PCP is Dr Kiera Ennis. [facility] following
--- NOTE | 2019-06-30 12:15 | NUR ---
AAOX4. CALM, FLAT, COOPERATIVE. AFIB PER TELE. SOB WITH MINIMAL EXERTION. ADULT DTR VISITS. DR. ANDERSON HERE. WILL CONTINUE TO FOLLOW CLOSELY.
[2019-06-30 17:26] VITALS: BP 131/42
[2019-06-30 19:42] VITALS: BP 172/56
[2019-07-01 00:24] VITALS: BP 178/50
[2019-07-01 03:28] VITALS: BP 153/47
[2019-07-01 05:25] LABS: HEMATOCRIT 27.5 % (37.0-47.0); HEMOGLOBIN 8.8 gm/dL (12.0-15.0); MCH 27.8 pg (26.0-34.0); MCHC 32.1 g/dL (28.0-37.0); MCV 86.5 fL (80.0-100.0); RBC 3.18 mil/uL (4.20-5.00); RDW 15.5 % (10.5-14.5); WBC 4.3 thou/uL (4.0-11.0)
[2019-07-01 05:58] LABS: CALCIUM 9.5 mg/dL (8.5-10.1); CREATININE 1.5 mg/dL (0.6-1.0); POTASSIUM 3.6 mmol/L (3.5-5.1)
[2019-07-01 08:00] VITALS: BP 170/72
[2019-07-01 11:56] VITALS: BP 124/45
[2019-07-01 13:36] LABS: % SATURATION 7 % (20-39); IRON 23 ug/dL (50-170); TIBC 317 ug/dL (250-450)
[2019-07-01 16:00] VITALS: BP 149/76
--- NOTE | 2019-07-01 17:17 | NUR ---
PT ALERT AND ORIENTED. VSS. UP ADLIB IN THE ROOM. NPO AFTER MIDNIGHT. EGD IN AM. NO CONCERNS AT THIS TIME. WILL CONTINUE TO MONITOR.
[2019-07-01 19:32] VITALS: BP 154/46
[2019-07-02] VITALS (7 sets, daily range): BP systolic 139–182; BP diastolic 42–60
[2019-07-02 04:06] LABS: HEMATOCRIT 28.4 % (37.0-47.0); MCH 27.5 pg (26.0-34.0); MCHC 31.8 g/dL (28.0-37.0); MCV 86.3 fL (80.0-100.0); RBC 3.29 mil/uL (4.20-5.00); RDW 15.2 % (10.5-14.5); WBC 4.3 thou/uL (4.0-11.0)
[2019-07-02 04:28] LABS: CALCIUM 9.9 mg/dL (8.5-10.1); CREATININE 1.6 mg/dL (0.6-1.0); MAGNESIUM 1.7 mg/dL (1.8-2.4); POTASSIUM 3.5 mmol/L (3.5-5.1)
--- NOTE | 2019-07-02 05:26 | NUR ---
ASSUMED PT CARE AT 1900. VSS. PT A&0X4. PT HAD AN UNEVENTFUL NIGHT. SHE SLEPT THROUGH THE NIGHT. NO COMPLAINTS OF RESPIRATORY DISTRESS, CONSENT SIGNED FOR EGD THIS AM. PT HAS BEEN NPO SINCE MIDNIGHT. PT IS STABLE, WILL CONTINUE TO MONITOR.
--- NOTE | 2019-07-02 15:00 | NUR ---
EGD today then possible dc to home. Pt up walking in the hallway and visiting with her family. No hh referral indicated at this time. Care team recommendations are for outpt f/u at dc.
--- NOTE | 2019-07-02 17:14 | NUR ---
DC HOME ANTICIPATED TOMORROW. PT AND DTR WANT HH RN FOR EDUCATION AND CHF MNGT. NO PT/OT NEEDED. PT WITH STM ISSUES AND WILL BE HOMEBOUND INITIALLY. HOMEBOUND STATUS AND MEDICARE HH BENEFITS REVIEWED WITH HER DTR. NO PREFERENCE FOR AGENCY INDICATED. WILL ASK NURSING TO FAX HH ORDERS TO [phone] [facility] AND CALL THEIR ONCALL NURSE [phone].
--- NOTE | 2019-07-02 18:32 | NUR ---
ASSESSMENT CHARTED. PT ALERT AND ORIENTED. HAD EGD THIS AM. DENIED HAVING PAIN OR DISCOMFORT. PLAN RO BE DISCHARGE IN AM. WILL CONTINUE TO MONITOR.
[2019-07-03 05:53] VITALS: BP 163/51
[2019-07-03 06:15] LABS: ALBUMIN 2.5 g/dL (3.4-5.0); CALCIUM 9.3 mg/dL (8.5-10.1); CREATININE 1.5 mg/dL (0.6-1.0); PHOSPHORUS 2.5 mg/dL (2.5-4.9); POTASSIUM 3.3 mmol/L (3.5-5.1)
--- NOTE | 2019-07-03 06:18 | NUR ---
[facility] 1900. PT/VITALS STABLE. ADEQUATE URINE OUTPUT NOTED. DENIES ANY PAIN. PROGRESSING WITH POC. ASSESSMETN CHARTED. ADEQUATE REST NOTED. PLAN IS TO CHANGE IV LASIX TO PO AND MONITOR PT BEFORE DISCHARGING. POSSIBLE DISCHARGE WITHIN 1-2 DAYS. WILL CONTINUE TO MONITOR AND FOLLOW WITH POC
[2019-07-03 07:20] VITALS: BP 154/45
[2019-07-03] MEDS ORDERED: CHLORTHALIDONE25 MG PO (10:37)
[2019-07-03] MEDS ORDERED: HYDRALAZINE 5050 MG PO (10:37)
[2019-07-03 10:52] VITALS: BP 170/60
--- NOTE | 2019-07-03 11:46 | NUR ---
ASSUMED CARE PT SHIFT CHANGE. ASSESSMENT CHARTED. MEDS GIVEN PER OCT. PT ALERT AND ORIENTED, VSS, DENIES PAIN. APPETITE ADEQUATE, DENIES SOB, CHEST PAIN. O2 SATS WNL ON ROOM AIR. DC ORDERS ACKNOWLEDGED AND IMPLEMENTED. DC PAPERWORK DISCUSSED WITH PT AND DAUGHTER, COMMUNICATES UNDERSTANDING. PER CASE MANAGEMENT NOTE, HH ORDERS FAXED TO NUMBER PROVIDED BY CASE MANAGEMENT. AND [employer] CONSULTANT NURSE WILL BE NOTIFIED. IV REMOVED, TELE REMOVED, PT AND DAUGHTER LEFT WITH ALL BELONGINGS AT APPROX 1130.
--- NOTE | 2019-07-06 09:44 | HC ---
[facility] [place] [address] CONSULTATION Name: SHEYLA CID Room #: 212-P [facility] IN M.R.#: [id number] Admission: 06/29/19 Attend Phys: Hu Kelly MD Discharge: 07/03/19 Date of : 36 Report #: [id number] THIS REPORT FOR: //name// CC: Kiera Kelly REASON FOR CONSULTATION: High blood pressure. REASON FOR PRESENTATION: Shortness of breath. HISTORY OF PRESENT ILLNESS: An 84-year-old with extensive past medical history including and not limited to COPD, stage 3 chronic kidney disease with a baseline creatinine of around 1.4-1.6. She is also known to have difficult to control hypertension, status post cerebrovascular accident, paroxysmal AFib with DVT and PE. She presented with shortness of breath and was found to be in hypertensive urgency. She denied any chest pain. No nausea or vomiting. Medication had been adjusted with some improvement in her blood pressure reading. I was consulted to assist with the management of her blood pressure. No recent changes as an outpatient. She had been seen by my nurse practitioner few months ago and she was doing fine on her blood pressure issues. She denies noncompliance with salt intake. MEDICATIONS: 1. Eliquis. 2. Hydralazine. 3. Metoprolol. 4. Felodipine. 5. Lisinopril. 6. Torsemide. 7. Levothyroxine. PAST MEDICAL HISTORY: Extensive and includes the followin. Chronic kidney disease with a baseline creatinine of around 1.5. 2. PE. 3. DVT. 4. Cerebrovascular accidents. 4. Left knee replacement. 5. Hysterectomy. 6. Cholecystectomy. 7. Hyperlipidemia. 8. Peripheral vascular disease. ALLERGIES: LATEX and SULFA. SOCIAL HISTORY: She denies drug or alcohol abuse. REVIEW OF SYSTEMS: [facility] [address] [place] [address] CONSULTATION Name: SHEYLA CID BRIANNA Room #: 212-P DIS IN Michele.#: [id number] Admission: 06/29/19 Attend Phys: Hu Kelly MD Discharge: 07/03/19 Date of : 36 Report #: [id number] GENERAL: No fever or chills. CARDIOVASCULAR: Significant for shortness of breath. PULMONARY: No cough or hemoptysis, but significant for shortness of breath. GASTROINTESTINAL: No nausea or vomiting. GENITOURINARY: No frequency, no urgency. SKIN: No rash or ulcerations. NEUROLOGICAL: No headache, no dizziness. FAMILY HISTORY: Significant for hypertension. PHYSICAL EXAMINATION: GENERAL: She is alert, oriented, in no apparent distress. VITAL SIGNS: Temperature 36.6, pulse rate 77, blood pressure is 153/47. HEAD AND NECK: No jugular venous distention. CHEST: Decreased air entry bilaterally. CARDIOVASCULAR: No rub detected. ABDOMEN: Soft, nontender. EXTREMITIES: Lower extremities +2 edema. LABORATORY VALUES: Reviewed. Chemistry from today revealed creatinine of 1.5, BUN of 30. IMPRESSION AND PLAN: 1. Hypertensive urgency. 2. Chronic kidney disease. 3. Atrial fibrillation. 4. Deep venous thrombosis. 5. Pulmonary embolism. 6. Continue with the diuresis for now. 7. Salt restrictions. 8. Vasodilator therapy is complicating her lower extremity edema. She is currently maintained on hydralazine and Norvasc. I would try to wean off those down the road. Continue with the lisinopril. 9. I might consider adding long-acting thiazide diuretics like chlorthalidone. <ELECTRONICALLY SIGNED> By: Daniel Salgado MD 07/06/19 [id number] Daniel Salgado MD /nt
--- NOTE | 2019-07-07 14:06 | PATH ---
[facility] [place] [address] PATHOLOGY RPT PROCEDURE Name: RHONDA CID Room #: 212-P DIS IN M.R.#: [id number] Admission: 06/29/19 Date of : 36 Discharge: 07/03/19 Report #: [id number] Path Case #: [id number] [facility] Accession Number: [id number] . 01 Material submitted: . PART A: stomach - RANDOM GASTRIC BIOPSY R/O H. PYLORI PART B: esophagus - BIOPSY OF ESOPHAGEAL ULCER . 01 Clinical history: . Preop DX: Anemia, Hx of Barajas's esophagus Postop DX: Hiatal hernia, gastritis A. r/o H. pylori . 01 Diagnosis: A. Gastric mucosa, gastric R/O H. pylori, endoscopic biopsy: - Moderate reactive gastropathy. - Negative for intestinal metaplasia or atrophy. - Negative for Helicobacter pylori (properly controlled immunohistochemical performed). . B. Gastroesophageal mucosa, esophageal ulcer, endoscopic biopsy: - Moderate acute esophagitis. - GMS fungal special stain pending, to be reported as an addendum. - Negative for intestinal metaplasia or dysplasia. (IUV:pit; 07/06/2019) QTP 07/06/2019 1316 Local . 01 Addendum: . This addendum is issued subsequent to reviewing a properly controlled GMS fungal special stain performed on block B1. It shows no definite fungal elements identified within the epithelium. (IUV:salome; 07/07/2019) . . Professional services performed by [facility] at [facility], [address] [place] [address] , [place] [address]. Technical services performed by [facility] at [address] [place] [address], [address] [address]. MBR/07/07/2019 Addendum Electronically Signed by Rody Reid MD, Pathologist . 02 Electronically signed: . Rody Reid MD, Pathologist NPI- [id number] . 01 Gross description: . A. The specimen is received in formalin labeled "Rhonda Cid Random Bx R/O H. pylori". The specimen source is not listed on the container. [facility] [address] [place] [address] PATHOLOGY RPT PROCEDURE Name: RHONDA CID Room #: 212-P DIS IN M.R.#: [id number] Admission: 06/29/19 Date of : 36 Discharge: 07/03/19 Report #: [id number] Path Case #: [id number] The source is listed on the requisition as "Random gastric bx r/o H. pylori". Received are six segments of rivera soft tissue measuring 0.8 x 0.6 x 0.2 cm in aggregate dimensions and ranging from 0.2 to 0.4 cm in maximum dimension. The specimen is submitted entirely in cassette A1. . B. Received in formalin labeled "Rhonda Cid, Bx of esophageal ulcer," is a fragment of rivera-brown soft tissue measuring 0.4 x 0.3 x 0.1 cm in greatest dimensions. The specimen is submitted entirely in cassette B1. (DAC; 07/05/2019) XDC/XDC 07/05/2019 1055 Local . 01 Pathologist provided ICD-10: K31.9, K20.9 . 01 CPT . 156206, 011233, C42991, 228772 Specimen Comment: A courtesy copy of this report has been sent to [phone] Specimen Comment: [phone], Specimen Comment: Report sent to ,DR MARCUM / DR ANDERSON Performed at: [address] [facility], [place] [id number] MD Finn Moore MD Phone: [phone] Performed at: [address] [facility] [id number] MD Rody Reid MD Phone: [phone]
== END 2019-07-03 11:30 | disposition home health service (06) | DRG 291 ==
LOC: ER 16:10 → 2N 20:05 → EROBS 20:05 → 2N 20:35 → ENTRNSPT 07-03 11:22 → 2N 07-03 11:30
PROVIDERS: Emergency Medicine; Hospitalist; Nurse Practitioner; Nurse Practitioner Family; ADMIT Internal Medicine
PROC: 0DB68ZX Excision of Stomach, Via Natural or Artificial Opening Endoscopic, Diagnostic (ICD-10-PCS; principal; 2019-07-02)
PROC: 0W3P8ZZ Control Bleeding in Gastrointestinal Tract, Via Natural or Artificial Opening Endoscopic (ICD-10-PCS; principal; 2019-07-02)
PROC: 0DB58ZZ Excision of Esophagus, Via Natural or Artificial Opening Endoscopic (ICD-10-PCS; principal; 2019-07-02)
DX: I13.0 Hypertensive heart and chronic kidney disease with heart failure and stage 1 through stage 4 chronic kidney disease, or unspecified chronic kidney disease (principal); I50.33 Acute on chronic diastolic (congestive) heart failure; E43 Unspecified severe protein-calorie malnutrition; D62 Acute posthemorrhagic anemia; K22.70 Barrett's esophagus without dysplasia; K29.70 Gastritis, unspecified, without bleeding; N18.3 Chronic kidney disease, stage 3 (moderate); Z96.652 Presence of left artificial knee joint; J44.9 Chronic obstructive pulmonary disease, unspecified; I73.9 Peripheral vascular disease, unspecified; E78.5 Hyperlipidemia, unspecified; I16.0 Hypertensive urgency; I48.0 Paroxysmal atrial fibrillation; E03.9 Hypothyroidism, unspecified; E83.42 Hypomagnesemia; Z66 Do not resuscitate; Z60.2 Problems related to living alone; K44.9 Diaphragmatic hernia without obstruction or gangrene; K22.8 Other specified diseases of esophagus; Z86.711 Personal history of pulmonary embolism; Z90.710 Acquired absence of both cervix and uterus; Z90.49 Acquired absence of other specified parts of digestive tract; Z95.820 Peripheral vascular angioplasty status with implants and grafts; Z88.2 Allergy status to sulfonamides; Z88.6 Allergy status to analgesic agent; Z91.040 Latex allergy status; Z86.718 Personal history of other venous thrombosis and embolism; I69.320 Aphasia following cerebral infarction; Z68.31 Body mass index [BMI] 31.0-31.9, adult; Z87.891 Personal history of nicotine dependence; Z79.01 Long term (current) use of anticoagulants; Z79.899 Other long term (current) drug therapy
CPT/HCPCS: 10081; 62110; 62900; 70005

== ENCOUNTER → 2019-08-18 | Outpatient (CLI) | payer OTHER, BC ==
[~2019-08-18] MED LIST changes: +CHLORTHALIDONE25 MG PO; +TORSEMIDE10 MG PO
== END ==
LOC: NUC 11:03
DX: M81.0 Age-related osteoporosis without current pathological fracture (principal)

== ENCOUNTER → 2019-09-21 | Outpatient (CLI) | payer OTHER, BC | LOC: SJCVC 13:28 | DX: R94.31 Abnormal electrocardiogram [ECG] [EKG] (principal); I48.0 Paroxysmal atrial fibrillation; I13.0 Hypertensive heart and chronic kidney disease with heart failure and stage 1 through stage 4 chronic kidney disease, or unspecified chronic kidney disease; I50.32 Chronic diastolic (congestive) heart failure; N18.3 Chronic kidney disease, stage 3 (moderate); J44.9 Chronic obstructive pulmonary disease, unspecified; D50.8 Other iron deficiency anemias; E21.3 Hyperparathyroidism, unspecified; E78.5 Hyperlipidemia, unspecified; Z87.891 Personal history of nicotine dependence; Z79.899 Other long term (current) drug therapy; Z79.82 Long term (current) use of aspirin; Z88.5 Allergy status to narcotic agent; Z88.2 Allergy status to sulfonamides; Z91.040 Latex allergy status ==

== ENCOUNTER → 2020-01-13 | Outpatient (CLI) | payer OTHER, BC | LOC: RAD 12:15 | DX: M79.671 Pain in right foot (principal) ==

== ENCOUNTER → 2020-03-02 | Outpatient (CLI) | payer OTHER, BC | LOC: SJCVC 13:28 | PROVIDERS: ATTEND Internal Medicine | DX: R94.31 Abnormal electrocardiogram [ECG] [EKG] (principal); I45.10 Unspecified right bundle-branch block; I49.1 Atrial premature depolarization; I13.0 Hypertensive heart and chronic kidney disease with heart failure and stage 1 through stage 4 chronic kidney disease, or unspecified chronic kidney disease; I50.32 Chronic diastolic (congestive) heart failure; N18.3 Chronic kidney disease, stage 3 (moderate); E78.5 Hyperlipidemia, unspecified; I48.0 Paroxysmal atrial fibrillation; J44.9 Chronic obstructive pulmonary disease, unspecified; E21.3 Hyperparathyroidism, unspecified; D50.8 Other iron deficiency anemias; Z79.899 Other long term (current) drug therapy; Z87.891 Personal history of nicotine dependence ==

== ENCOUNTER → 2020-09-04 | Outpatient (CLI) | payer OTHER, BC | LOC: SJCVC 11:10 | PROVIDERS: ATTEND Internal Medicine | DX: R00.1 Bradycardia, unspecified (principal); I13.0 Hypertensive heart and chronic kidney disease with heart failure and stage 1 through stage 4 chronic kidney disease, or unspecified chronic kidney disease; I50.32 Chronic diastolic (congestive) heart failure; N18.30 Chronic kidney disease, stage 3 unspecified; I48.0 Paroxysmal atrial fibrillation; E78.5 Hyperlipidemia, unspecified; J44.9 Chronic obstructive pulmonary disease, unspecified; D50.8 Other iron deficiency anemias; E21.3 Hyperparathyroidism, unspecified; K21.9 Gastro-esophageal reflux disease without esophagitis; E03.9 Hypothyroidism, unspecified; E66.3 Overweight; D50.9 Iron deficiency anemia, unspecified; F32.9 Major depressive disorder, single episode, unspecified; Z86.711 Personal history of pulmonary embolism; Z87.891 Personal history of nicotine dependence; Z79.899 Other long term (current) drug therapy; Z88.5 Allergy status to narcotic agent; Z88.2 Allergy status to sulfonamides; Z88.8 Allergy status to other drugs, medicaments and biological substances; Z91.040 Latex allergy status ==

== ENCOUNTER → 2020-12-18 | Outpatient (CLI) | payer OTHER, BC | LOC: MRI 14:51 | PROVIDERS: ATTEND Family Medicine | DX: I67.82 Cerebral ischemia (principal); E23.6 Other disorders of pituitary gland ==

== ENCOUNTER → 2021-01-04 | Outpatient (CLI) | payer OTHER, BC | LOC: RAD 09:51 | PROVIDERS: ATTEND Nurse Practitioner | DX: M77.32 Calcaneal spur, left foot (principal); M79.672 Pain in left foot; M79.89 Other specified soft tissue disorders ==

== ENCOUNTER → 2021-04-27 | Outpatient (CLI) | payer OTHER, BC | LOC: SJCVC 13:23 | PROVIDERS: ATTEND Internal Medicine | DX: I48.0 Paroxysmal atrial fibrillation (principal); I13.0 Hypertensive heart and chronic kidney disease with heart failure and stage 1 through stage 4 chronic kidney disease, or unspecified chronic kidney disease; N18.30 Chronic kidney disease, stage 3 unspecified; J44.9 Chronic obstructive pulmonary disease, unspecified; I50.32 Chronic diastolic (congestive) heart failure; E78.5 Hyperlipidemia, unspecified; D50.8 Other iron deficiency anemias; E21.3 Hyperparathyroidism, unspecified; E03.9 Hypothyroidism, unspecified; Z87.891 Personal history of nicotine dependence; Z79.899 Other long term (current) drug therapy; Z91.040 Latex allergy status; Z88.2 Allergy status to sulfonamides; Z88.5 Allergy status to narcotic agent ==

== ENCOUNTER 2021-06-14 18:37 | Inpatient (IN) | payer OTHER, BC ==
[~2021-06-14] VITALS: Ht 157.5 cm; Wt 77.1 kg
--- NOTE | ~2021-06-14 | EMS ---
[address] [address] EMS Patient Care Report Name: SHEYLA CID Room #: 170-1 ADM IN M.R.#: [id number] Admission: 06/14/21 Attend Phys: Kade Cool Discharge: Date of : 36 Report #: [id number] THIS REPORT FOR: //name// Report Transmitted: 06/14/2021 20:58 EMS Care Summary [facility] Incident [id number] @ 06/14/2021 17:57 Incident Location [address] [place] [address] Patient SHEYLA CID Female, 86 Years 1935 Patient Address [address] [place] [address] Patient History Chronic Obstructive Pulmonary Disease (COPD),Hypertension (HTN), Patient Allergies Morphine,Sulfa, Patient Medications Metoprolol, Proair, Sertraline, Felodipine, Torsemide, Eliquis, Hydralazine, Lisinopril, Chief Complaint Shortness of breath Disposition Transported No Lights/[place] Dispatch Reason Breathing Problem Transported To [facility] Narrative Dispatched to pt wheezing with history of COPD with treatment not helping. Upon [facility] [address] [place] [address] EMS Patient Care Report Name: SHEYLA CID Room #: 170-1 ADM IN M.R.#: [id number] Admission: 06/14/21 Attend Phys: Kade Silverio Travon Discharge: Date of : 36 Report #: [id number] arrival pt found walking out of the bathroom with obvious labored breathing and audible wheezing. Pt state it has gotten really severe over the past hour with breathing treatments not helping. Staff states pt has been having these wheezing attacks for approx 1 month and have not figured out the cause of the problem. Staff states they have done x-rays and other test to figure it out with no clear solution. Pt denies chest pain. Pt denies dizziness, nausea or vomiting. ALS assessment. school bus monitor, 12-lead, IV, O2, Albuterol, Atrovent, Solu-medrol, and VS obtained. Pt transported to ED for further evaluation and treatment by MD. Initial Vitals @18:20P: 103,R: 17,CO: 1, @18:22R: 40,SpO2: 100, @18:20P: 106,R: 22, @18:16P: 101,R: 19,CO: 0,SpO2: 100, @18:16P: 77,R: 35,SpO2: 100, @18:23P: 86,R: 17,BP: 147/63,GCS: 15,SpO2: 100,Revised Trauma: 12, @18:08P: 84,R: 26,BP: 180/72,GCS: 15,CO: 3,SpO2: 94,Revised Trauma: 12, @18:28P: 91,R: 28,BP: 170/73,GCS: 15,CO: 1,SpO2: 97,Revised Trauma: 12, Assessments @18:09MENTAL:Person Oriented,Time Oriented,Place Oriented,Event Oriented,SKIN:HEENT:LUNG SOUNDS:ABDOMEN:PELVIS//GI:EXTREMITIES:Left Arm: No Abnormalities,Right Arm: No Abnormalities,Left Leg: No Abnormalities,Right Leg: No Abnormalities,PULSE:NEURO:@18:18MENTAL:Person Oriented,Time Oriented,Place Oriented,Event Oriented,SKIN:HEENT:Eyes: Left Pupil: 4-mm,Eyes: Right Pupil: 4-mm,Head/Face: No Abnormalities,LUNG SOUNDS:Left Upper: No Abnormalities,Right Upper: No Abnormalities,Left Lower: No Abnormalities,Right Lower: No Abnormalities,ABDOMEN:Left Upper: No Abnormalities,Right Upper: No Abnormalities,Left Lower: No Abnormalities,Right Lower: No Abnormalities,PELVIS//GI:EXTREMITIES:Left Arm: No Abnormalities,Right Arm: No Abnormalities,Left Leg: No Abnormalities,Right Leg: No Abnormalities,PULSE:NEURO:No Abnormalities, Impression Acute Respiratory Distress (Dyspnea) Procedures @18:16 IV Therapy - Saline Lock 10cc (20 ga) Site: Forearm-Left Response: UnchangedSucceeded @18:22 12-Lead ECG Response: UnchangedSucceeded @18:09 Oxygen FlowRate: 8 Device: Nebulizer Response: ImprovedSucceeded @18:20 Solu-Medrol - 125 Milligrams (mg) - Intravenous (IV) Response: Unchanged @18:09 Albuterol - 2.5 Milligrams (mg) - Nebulized Response: Improved @18:09 Atrovent - 0.5 Milligrams (mg) - Nebulized Response: Improved @18:09 ALS Assessment Response: UnchangedSucceeded [address] [address] EMS Patient Care Report Name: SHEYLA CID Room #: 170-1 [facility] IN M.R.#: [id number] Admission: 06/14/21 Attend Phys: Kade Silverio Travon Discharge: Date of : 36 Report #: [id number] Timeline 17:54,Call Received 17:54,Psap Call 17:57,Dispatched 17:59,En Route 18:03,On Scene 18:05,At Patient 18:08,BP: 180/72 M,PULSE: 84,RR: 26 R,SPO2: 94 Ox,ETCO2: ,BG: ,PAIN: ,GCS: 15, 18:09,ALS Assessment,Response: UnchangedSucceeded, 18:09,Oxygen FlowRate: 8 Device: Nebulizer Response: ImprovedSucceeded, 18:09,Albuterol - 2.5 Milligrams (mg) - Nebulized,Response: Improved 18:09,Atrovent - 0.5 Milligrams (mg) - Nebulized,Response: Improved 18:12,Depart Scene 18:16,IV Therapy - Saline Lock 10cc 20 ga Site: Forearm-Left,Response: UnchangedSucceeded, 18:16,BP: / M,PULSE: 101,RR: 19 R,SPO2: 100 Ox,ETCO2: ,BG: ,PAIN: ,GCS: , 18:16,BP: / M,PULSE: 77,RR: 35 R,SPO2: 100 Ox,ETCO2: ,BG: ,PAIN: ,GCS: , 18:20,BP: / M,PULSE: 103,RR: 17 R,SPO2: Ox,ETCO2: ,BG: ,PAIN: ,GCS: , 18:20,BP: / M,PULSE: 106,RR: 22 R,SPO2: Ox,ETCO2: ,BG: ,PAIN: ,GCS: , 18:20,Solu-Medrol - 125 Milligrams (mg) - Intravenous (IV),Response: Unchanged 18:22,12-Lead ECG,Response: UnchangedSucceeded, 18:22,BP: / M,PULSE: ,RR: 40 R,SPO2: 100 Ox,ETCO2: ,BG: ,PAIN: ,GCS: , 18:23,BP: 147/63 M,PULSE: 86,RR: 17 R,SPO2: 100 Ox,ETCO2: ,BG: ,PAIN: ,GCS: 15, 18:28,BP: 170/73 M,PULSE: 91,RR: 28 R,SPO2: 97 Ox,ETCO2: ,BG: ,PAIN: ,GCS: 15, 18:32,At Destination 18:58,Call Closed Disclaimer v1.1 Copyright 2020 [employer] This EMS Care Summary contains data elements from the applicable legal record (which may be displayed differently). It is designed to provide pertinent information for the following purposes: continuity of care, clinical quality, and state data reporting. The complete legal record is available to ED staff and administrators of the receiving hospital in [employer]'s Patient Tracker. All data is provided "as is."
[2021-06-14 18:38] VITALS: BP 169/53
[2021-06-14 19:10] LABS: ABSOLUTE NEUTROPHILS 7.5 thou/uL (1.4-8.2); BASOPHILS 0.8 % (0.0-2.0); EOSINOPHILS 1.2 % (0.0-3.0); HEMATOCRIT 25.9 % (37.0-47.0); HEMOGLOBIN 7.7 gm/dL (12.0-15.0); LYMPHOCYTES 18.8 % (24.0-44.0); MCH 22.1 pg (26.0-34.0); MCHC 29.7 g/dL (28.0-37.0); MCV 74.4 fL (80.0-100.0); MONOCYTES 8.3 % (1.0-8.0); PLATELET COUNT 377 thou/uL (150-400); POLYS 70.9 % (36.0-66.0); RBC 3.48 mil/uL (4.20-5.00); RDW 17.4 % (10.5-14.5); WBC 10.6 thou/uL (4.0-11.0)
[2021-06-14] MEDS ORDERED: TORSEMIDE20 MG PO (19:34)
[2021-06-14] MEDS ORDERED: SERTRALINE HCL100 MG PO (19:34)
[2021-06-14 19:44] LABS: CALCIUM 9.1 mg/dL (8.5-10.1); CREATININE 1.6 mg/dL (0.6-1.0); POTASSIUM 4.2 mmol/L (3.5-5.1)
[2021-06-14 19:55] LABS: ALBUMIN 2.5 g/dL (3.4-5.0); TOTAL BILIRUBIN 0.2 mg/dL (0.2-1.0); TOTAL PROTEIN 5.6 g/dL (6.4-8.2)
--- NOTE | 2021-06-14 21:37 | NUR ---
ATTEMPTED TO CALL ANUJA DEGROOT IN REGARDS TO POC FOR PATIENT
[2021-06-14 21:55] VITALS: BP 189/66
[2021-06-14 22:02] VITALS: BP 178/64
[2021-06-14 23:25] VITALS: BP 193/78
[2021-06-15 00:54] VITALS: BP 173/68
--- NOTE | 2021-06-15 01:18 | NUR ---
Pt admitted from ED with CHF/COPD exac at 2230. A/OX3-4 with forgetfulness noted but able to make needs known. Up with AX1,RW/GB. Has some stress incontinence,continent of bowels. Fall precautions implemented,frequent checks on pt. Skin C/D/I,1+ edema on BLE,extremities while in bed.
[2021-06-15] MEDS ORDERED: METOPROLOL SUC200 MG PO (01:19)
[2021-06-15 04:44] VITALS: BP 158/59
--- NOTE | 2021-06-15 07:09 | EKG ---
[address] [address] ELECTROCARDIOGRAM REPORT Name: SHEYLA CID Room #: 462-P ADM IN M.R.#: [id number] Admission: 06/14/21 Attend Phys: Kade Cool Discharge: Date of : 36 Report #: [id number] [facility] ED Test Date: 2021-06-14 Test Time: 18:54:24 Pat Name: SHEYLA CID Department: Room: 462 Gender: F Floor Assembler: ESTHELA : 1935 Requested By: Sandro Scott Order Number: [id number] MD: Herman Higgins Measurements Intervals [place] Rate: 72 P: PA: QRS: -2 QRSD: 114 T: 37 QT: 517 QTc: 566 Interpretive Statements Atrial fibrillation Borderline intraventricular conduction delay Compared to ECG 06/29/2019 16:27:42 Sinus rhythm no longer present Right bundle-branch block no longer present Electronically Signed On 06-15-2021 7:09:21 CDT by Herman Higgins [email or web address] <ELECTRONICALLY SIGNED> By: Herman Higgins MD, [facility] 06/15/21 [phone] Herman Higgins MD, FACC /EPI
[2021-06-15 07:43] VITALS: BP 148/47
--- NOTE | 2021-06-15 15:37 | NUR ---
PT ADMITTED RELATED TO CHF AND COPD EXACERBATION. CM REVIEWED CHART AND SPOKE WITH CARE TEAM. CM MET WITH PT AT BEDSIDE THIS DAY. 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 PT INDICATED IT WAS A COMMUNITY WITH OTHER PEOPLE. PT INDICATED SHE USES A FWW TO ASSIST WITH MOBILITY. PT INDICATED NO O2 JOB SITE SUPERINTENDENT. PER CHART PT RESIDES IN ASSISTED LIVING AT [facility] IN [place]. CM CALLED AND THEY CONFIRMED. CM FAXED CLINICAL INFO TO [facility]. CM CALLED AND LEFT FOR PT'S DTR CM FOLLOWING REGARDING DC PLANNING. CARE TEAM INDICATED THAT PT WILL BE HERE OVER THE WEEKEND.
[2021-06-15 18:03] VITALS: BP 152/62
[2021-06-15 19:45] VITALS: BP 169/65
--- NOTE | 2021-06-15 20:14 | NUR ---
Assumed pt care this am vs stable, pt is alert and oriented x 4 , forgetful but redirectable. Was able to work with PT and walk the halls with a steady gait. POC followed with no signs or verbalizations of distress noted, fall precautions in place. Endorsed to the night nurse.
[2021-06-16 00:32] VITALS: BP 145/80
[2021-06-16 03:51] VITALS: BP 135/45
--- NOTE | 2021-06-16 05:40 | NUR ---
ASSUMED CARE AT 1900, PT COMFORTABLY LAYING IN BED, REPORTS NO PAIN OR DISCOMFORT, ICED WATER ON THE BEDSIDE COPLIANT TO TX, NO ADVERSE REACTION NOTED, WATCHING TV, CALL LIGHT WITHIN REACH WILL CONTINUE TO MONITOR.
[2021-06-16 06:17] LABS: ALBUMIN 2.4 g/dL (3.4-5.0); CALCIUM 8.8 mg/dL (8.5-10.1); CREATININE 2.1 mg/dL (0.6-1.0); PHOSPHORUS 3.4 mg/dL (2.5-4.9); POTASSIUM 4.5 mmol/L (3.5-5.1)
[2021-06-16 07:44] VITALS: BP 165/55
[2021-06-16 12:13] VITALS: BP 147/42
[2021-06-16 16:25] VITALS: BP 147/53
--- NOTE | 2021-06-16 18:10 | NUR ---
Pt A & O x4. Pt VS stable. Pt is x 1 assist with ADLs and cares. pt is room air noted. pt received medications as ordered. Pt is able to make needs known. pt is sinus tach on the tele.
[2021-06-16 21:03] VITALS: BP 164/61
[2021-06-17 01:44] VITALS: BP 162/51
--- NOTE | 2021-06-17 05:10 | NUR ---
ASSUMED CARE AT 1900, PT REPORTS VERY SLEEPY, NO PAIN OR DISCOMFORT REPORTED, TOLARATED TX WELL, NO ADVERSE REACTION NOTED, SLEPT THROUGH THE NIGHT, TOILETED NEEDED WILL CONTINUE TO MONITOR.
[2021-06-17 06:13] VITALS: BP 178/70
[2021-06-17 07:46] VITALS: BP 176/63
[2021-06-17] MEDS ORDERED: HYDRALAZINE 5050 MG PO (11:10)
[2021-06-17] MEDS ORDERED: PREDNISOLONE 5 M5 M1 PO (11:14)
[2021-06-17 11:15] VITALS: BP 163/70
[2021-06-17 12:00] VITALS: BP 163/70
--- NOTE | 2021-06-17 13:40 | NUR ---
PATIENT IS ALERT AND ORIENTED X 4. VSS AFEBRILE. DENIES PAIN AT THIS TIME. EDUCATED PATIENT AND DAUGHTER ABOUT DISCHARGE INSTRUCTIONS AND MEDICATIONS. BOTH VERBALIZE FULL UNDERSTANDING AT THIS TIME. PATIENT DISCHARGED BACK TO [facility]. LEFT VIA WC AND IN DAUGHTERS VEHICLE.
== END 2021-06-17 13:00 | disposition home or self-care (01) | DRG 291 ==
LOC: ER 18:37 → 4W 21:18 → EROBS 21:18 → 4W 22:03
PROVIDERS: Emergency Medicine; ADMIT Hospitalist; ATTEND Hospitalist
DX: I13.0 Hypertensive heart and chronic kidney disease with heart failure and stage 1 through stage 4 chronic kidney disease, or unspecified chronic kidney disease (principal); I50.33 Acute on chronic diastolic (congestive) heart failure; J44.1 Chronic obstructive pulmonary disease with (acute) exacerbation; E46 Unspecified protein-calorie malnutrition; D64.9 Anemia, unspecified; N18.30 Chronic kidney disease, stage 3 unspecified; Z20.822 Contact with and (suspected) exposure to COVID-19; E78.5 Hyperlipidemia, unspecified; E03.9 Hypothyroidism, unspecified; Z66 Do not resuscitate; I48.0 Paroxysmal atrial fibrillation; K22.70 Barrett's esophagus without dysplasia; Z96.652 Presence of left artificial knee joint; R53.81 Other malaise; Z68.31 Body mass index [BMI] 31.0-31.9, adult; Z88.2 Allergy status to sulfonamides; Z88.6 Allergy status to analgesic agent; Z91.040 Latex allergy status; Z87.891 Personal history of nicotine dependence; Z90.710 Acquired absence of both cervix and uterus; Z86.73 Personal history of transient ischemic attack (TIA), and cerebral infarction without residual deficits; Z90.49 Acquired absence of other specified parts of digestive tract; Z86.711 Personal history of pulmonary embolism; Z86.718 Personal history of other venous thrombosis and embolism
CPT/HCPCS: 10045

== ENCOUNTER 2021-09-17 18:49 | Inpatient (IN) | payer OTHER, BC ==
[~2021-09-17] VITALS: Ht 157.5 cm; Wt 66.4 kg
--- NOTE | ~2021-09-17 | EMS ---
[address] [address] EMS Patient Care Report Name: SHEYLA CID Room #: 362-P ADM IN M.R.#: [id number] Admission: 09/17/21 Attend Phys: Noe Paulson MD Discharge: Date of : 36 Report #: [id number] THIS REPORT FOR: //name// Report Transmitted: 09/20/2021 11:53 EMS Care Summary [facility] Incident [id number] @ 09/17/2021 18:06 Incident Location [address] [place] [address] Patient SHEYLA CID Female, 86 Years 1935 Patient Address [address] [place] [address] Patient History Chronic Obstructive Pulmonary Disease (COPD),Dementia,Hypertension (HTN),Gastro-Esophageal Reflux Disease (GERD),Atrial Fibrillation,Hypothyroidism, Patient Allergies Morphine,Sulfa, Patient Medications Eliquis, Proair, Lisinopril, Hydralazine, Felodipine, Torsemide, Sertraline, Metoprolol, Chief Complaint Low Hemoglobin Disposition Transported No Lights/[place] Dispatch Reason Sick Person Transported To [address] [address] EMS Patient Care Report Name: SHEYLA CID Room #: 362-P ADM IN M.R.#: [id number] Admission: 09/17/21 Attend Phys: Noe Paulson MD Discharge: Date of : 36 Report #: [id number] Narrative Dispatched to pt with abnormal lab values. Upon arrival pt found standing and walking around apartment in no apparent distress. Pt complains of low hemoglobin after blood was drawn 2 days prior. Pt denies dizziness, nausea or vomiting. Pt denies chest pain or shortness of breath. Pt denies weakness. Pt has no symptoms. Merchandise Pickup/Receiving Associate assessment. Stretcher. monitor car operator, and VS obtained. Pt transported with no change in condition to ED for further evaluation and treatment by . Initial Vitals @18:35P: 73,R: 25,SpO2: 99, @18:39P: 76,R: 18,BP: 172/66,GCS: 15,SpO2: 98,Revised Trauma: 12, @18:25P: 73,R: 16,BP: 184/72,GCS: 15,SpO2: 99,Revised Trauma: 12, Impression No Complaints or Injury/Illness Noted Procedures @18:21 ALS Assessment Response: UnchangedSucceeded @18:23 Stretcher Response: Unchanged Timeline 18:05,Call Received 18:05,Psap Call 18:06,Dispatched 18:07,En Route 18:14,On Scene 18:19,At Patient 18:21,ALS Assessment,Response: UnchangedSucceeded, 18:23,Stretcher,Response: Unchanged 18:25,Depart Scene 18:25,BP: 184/72 M,PULSE: 73,RR: 16 R,SPO2: 99 Ox,ETCO2: ,BG: ,PAIN: ,GCS: 15, 18:35,BP: / M,PULSE: 73,RR: 25 R,SPO2: 99 Ox,ETCO2: ,BG: ,PAIN: ,GCS: , 18:39,BP: 172/66 M,PULSE: 76,RR: 18 R,SPO2: 98 Ox,ETCO2: ,BG: ,PAIN: ,GCS: 15, 18:45,At Destination 19:07,Call Closed Disclaimer v1.1 Copyright 2021 [employer] This EMS Care Summary contains data elements from the applicable legal record (which may be displayed differently). It is designed to provide pertinent information for the following purposes: continuity of care, clinical quality, and state data reporting. The complete legal record is available to ED staff and administrators of the receiving hospital in [employer]'s Patient Tracker. All data [address] [address] EMS Patient Care Report Name: SHEYLA CID BRIANNA Room #: 362-P ADM IN M.R.#: [id number] Admission: 09/17/21 Attend Phys: Noe Paulson MD Discharge: Date of : 36 Report #: [id number] is provided "as is."
--- NOTE | ~2021-09-17 | EMS ---
[address] [address] EMS Patient Care Report Name: SHEYLA CID Room #: REG VERITO Quiros#: [id number] Admission: 09/17/21 Attend Phys: Discharge: Date of : 36 Report #: [id number] THIS REPORT FOR: //name// Report Transmitted: 09/17/2021 18:31 EMS Care Summary [facility] Incident [id number] @ 09/17/2021 18:06 Incident Location [address] [place] [id number] Patient SHEYLA CID Female, 86 Years 1935 Patient Address [address] [place] [address] Patient History Chronic Obstructive Pulmonary Disease (COPD),Dementia,Hypertension (HTN),Gastro-Esophageal Reflux Disease (GERD),Atrial Fibrillation,Hypothyroidism, Patient Allergies Morphine,Sulfa, Patient Medications Eliquis, Proair, Lisinopril, Hydralazine, Felodipine, Torsemide, Sertraline, Metoprolol, Chief Complaint Low Hemoglobin Disposition Transported No Lights/[place] Dispatch Reason Sick Person Transported To [address] [address] EMS Patient Care Report Name: SHEYLA CID Room #: REG Cornelius.#: [id number] Admission: 09/17/21 Attend Phys: Discharge: Date of : 36 Report #: [id number] Narrative Dispatched to pt with abnormal lab values. Upon arrival pt found standing and walking around apartment in no apparent distress. Pt complains of low hemoglobin after blood was drawn 2 days prior. Pt denies dizziness, nausea or vomiting. Pt denies chest pain or shortness of breath. Pt denies weakness. Pt has no symptoms. College Teacher assessment. Stretcher. campus monitor, and VS obtained. Pt transported with no change in condition to ED for further evaluation and treatment by MD. Initial Vitals @18:35P: 73,R: 25,SpO2: 99, @18:39P: 76,R: 18,BP: 172/66,GCS: 15,SpO2: 98,Revised Trauma: 12, @18:25P: 73,R: 16,BP: 184/72,GCS: 15,SpO2: 99,Revised Trauma: 12, Impression No Complaints or Injury/Illness Noted Procedures @18:21 ALS Assessment Response: UnchangedSucceeded @18:23 Stretcher Response: Unchanged Timeline 18:05,Call Received 18:05,Psap Call 18:06,Dispatched 18:07,En Route 18:14,On Scene 18:19,At Patient 18:21,ALS Assessment,Response: UnchangedSucceeded, 18:23,Stretcher,Response: Unchanged 18:25,Depart Scene 18:25,BP: 184/72 M,PULSE: 73,RR: 16 R,SPO2: 99 Ox,ETCO2: ,BG: ,PAIN: ,GCS: 15, 18:35,BP: / M,PULSE: 73,RR: 25 R,SPO2: 99 Ox,ETCO2: ,BG: ,PAIN: ,GCS: , 18:39,BP: 172/66 M,PULSE: 76,RR: 18 R,SPO2: 98 Ox,ETCO2: ,BG: ,PAIN: ,GCS: 15, 18:45,At Destination 19:07,Call Closed Disclaimer v1.1 Copyright 2021 [employer] This EMS Care Summary contains data elements from the applicable legal record (which may be displayed differently). It is designed to provide pertinent information for the following purposes: continuity of care, clinical quality, and state data reporting. The complete legal record is available to ED staff and administrators of the receiving hospital in [employer]'s Patient Tracker. All data [facility] [address] [place] [address] EMS Patient Care Report Name: SHEYLA CID BRIANNA Room #: REG [facility].#: [id number] Admission: 09/17/21 Attend Phys: Discharge: Date of : 36 Report #: [id number] is provided "as is."
[~2021-09-17 18:49] MED LIST changes: +METOPROLOL SUC200 MG PO; +PREDNISOLONE 5 M5 M1 PO; +SERTRALINE HCL100 MG PO; +TORSEMIDE20 MG PO
[2021-09-17 18:56] VITALS: BP 179/78
[2021-09-17 19:50] LABS: MCH 19.5 pg (26.0-34.0); WBC 8.1 thou/uL (4.0-11.0)
[2021-09-17 19:52] LABS: HEMATOCRIT 21.1 % (37.0-47.0); MCHC 29.3 g/dL (28.0-37.0); MCV 66.5 fL (80.0-100.0); RBC 3.17 mil/uL (4.20-5.00); RDW 19.3 % (10.5-14.5)
[2021-09-17 20:03] LABS: CALCIUM 9.8 mg/dL (8.5-10.1); CREATININE 2.4 mg/dL (0.6-1.0); POTASSIUM 4.7 mmol/L (3.5-5.1)
[2021-09-17 20:09] LABS: ALBUMIN 3.1 g/dL (3.4-5.0); TOTAL BILIRUBIN 0.2 mg/dL (0.2-1.0); TOTAL PROTEIN 6.1 g/dL (6.4-8.2)
[2021-09-17 20:10] LABS: APTT 25.9 Seconds (24.5-32.8); HEMOGLOBIN 6.2 gm/dL (12.0-15.0); PROTIME 10.9 Seconds (10.5-12.1)
[2021-09-17 21:24] VITALS: BP 162/58; BP 165/59; BP 166/60; BP 169/59
--- NOTE | 2021-09-17 23:13 | NUR ---
Reported to JOSE Jay from [facility] regarding pt being covid +
[2021-09-17 23:33] VITALS: BP 179/62
[2021-09-17 23:58] VITALS: BP 187/78
[2021-09-18 00:47] VITALS: BP 163/60
[2021-09-18 01:19] LABS: HEMOGLOBIN 7.5 gm/dL (12.0-15.0)
[2021-09-18] MEDS ORDERED: LEVOFLOXACIN500 MG PO (04:27)
[2021-09-18 05:00] VITALS: BP 178/69
[2021-09-18] MEDS ORDERED: MUCINEX600 MG PO (05:29)
[2021-09-18] MEDS ORDERED: TORSEMIDE20 MG PO ×2 (05:35→05:36)
[2021-09-18] MEDS ORDERED: Vitamin b12 PO (05:40)
[2021-09-18] MEDS ORDERED: SYMBICORT160 MCG/4. INH (05:41)
[2021-09-18] MEDS ORDERED: PROAIR HFA8.5 GM INH (05:42)
--- NOTE | 2021-09-18 06:33 | NUR ---
Pt. arrived from ER at 2355. Able to answer orientation questions except she stated she does not know why she's here. Pt. has been reoriented. IV fluids started per order. New IV placed on left upper arm/shoulder area. Med rec verified (obtained from list sent by Oscar Yepez [place]). Tolerating room air well though she stated she gets short of breath at times. Assisted up to commode to void. Bed alarm on for safety. Pt. has incision on left lower extremity with sutures. She said she had fallen few days ago and that's where she got it from.
[2021-09-18 07:53] VITALS: BP 178/69
[2021-09-18 13:53] LABS: % SATURATION 9 % (20-39); IRON 40 ug/dL (50-170); TIBC 443 ug/dL (250-450)
[2021-09-18 14:13] LABS: FOLIC ACID 7.7 ng/mL (8.6-58.9)
--- NOTE | 2021-09-18 14:22 | EKG ---
[address] [place] [address] ELECTROCARDIOGRAM REPORT Name: SHEYLA CID Room #: 352- ADM IN M.R.#: [id number] Admission: 09/17/21 Attend Phys: Noe Paulson MD Discharge: Date of : 36 Report #: [id number] [facility] ED Test Date: 2021-09-17 Test Time: 19:03:43 Pat Name: SHEYLA CID Department: Room: [facility] Gender: F Heavy Mobile Equipment Operator: MARY : 1935 Requested By: Varun Drake Order Number: [id number] MD: Herman Higgins Measurements Intervals [place] Rate: 74 P: 78 [place]: 75 QRS: 10 QRSD: 83 T: 53 QT: 385 QTc: 428 Interpretive Statements Sinus rhythm Atrial premature complexes Short [place] interval Baseline wander in lead(s) I,III,aVL Compared to ECG 06/14/2021 18:54:24 Atrial premature complex(es) now present Short [place] interval now present Atrial fibrillation no longer present Electronically Signed On 09-18-2021 14:22:08 CORRECTIONAL THERAPY TEACHER by Herman Higgins [email or web address] <ELECTRONICALLY SIGNED> By: Herman Higgins MD, FAC 09/18/21 1422 1903 1903 Herman Higgins MD, [facility] /EPI
[2021-09-18 14:58] LABS: DIRECT BILIRUBIN < 0.1 mg/dL (<0.1-0.2); SGOT 11 U/L (15-37); SGPT 16 U/L (14-59); TOTAL BILIRUBIN 0.3 mg/dL (0.2-1.0); TOTAL PROTEIN 5.5 g/dL (6.4-8.2)
[2021-09-18 16:00] VITALS: BP 210/83
--- NOTE | 2021-09-18 16:42 | NUR ---
INITIAL ASSESSMENT: Received consult. JONG reviewed chart and spoke with nursing and attending physician. Pt was admitted from [facility] due to anemia. Hemoglobin was 6.1 Pt had blood tranfusion. GI consulted. Pt was initially placed in Enhanced Isolation due to positive COVID test. Enhanced Isolation precautions have been discontinued. Pt is on IV steroids. Pt is on IV iron. PT/OT ordered. JONG spoke with charge nurse at [facility] who states that pt uses a walker and is able to do ADLs with some cues. Pt is on service with [facility] for therapy. Pt with hx of dementia. JONG spoke with pt's dtr, Margie, via phone. Introduced role of JONG. Pt lives in an AL apt at [facility]. Pt's dtr states the TAPE CUTTER, Kimberly, spoke with Margie today about possible post-acute placement prior to returning to her AL apt. Pt's dtr is agreeable. Pt has not been to a facility in the past. JONG discussed 5N v. SNF. Pt's dtr will be at [facility] tomorrow afternoon. SW to leave SNF list for pt's dtr to review. Pt's dtr provided number for DIXIE Harris ([phone]) if needed to discuss discharge. JONG notified 5N of possible consult. JONG is following to assist as needed with discharge planning.
[2021-09-18 19:07] VITALS: BP 151/57
[2021-09-18 23:18] LABS: URINE BILIRUBIN NEGATIVE (Negative); URINE BLOOD NEGATIVE (Negative); URINE CLARITY CLEAR; URINE COLOR YELLOW; URINE GLUCOSE-RANDOM* NEGATIVE (Negative); URINE KETONES NEGATIVE (Negative); URINE LEUKOCYTES-REFLEX TRACE (Negative); URINE NITRITE-REFLEX NEGATIVE (Negative); URINE PROTEIN (DIPSTICK) 1+ (Negative); URINE SPECIFIC GRAVITY 1.015 (1.005-1.035); URINE UROBILINOGEN 0.2 E.U./dl (0.2-1.0)
[2021-09-18 23:40] LABS: BACTERIA-REFLEX 1-9 Few /HPF (None Seen); CASTS None Seen /LPF (None Seen); CRYSTALS None Seen /LPF (None Seen); MUCUS 0-3 Light strn/LPF (None Seen); SQUAMOUS 4-10 Moderate /LPF (0-3); URINE RBC 1-2 Rare /HPF (NONE SEEN); URINE WBC-REFLEX 0-5 Rare /HPF (0-5)
[2021-09-19 05:30] VITALS: BP 186/60
--- NOTE | 2021-09-19 05:43 | NUR ---
Slept fair during the night. Up with assist to commode to void. Urine sample sent to lab.No signs of active bleeding. Bed alarm on for safety. Left lower extremity dressing clean,dry and intact.
[2021-09-19 06:45] LABS: ABSOLUTE NEUTROPHILS 5.3 thou/uL (1.4-8.2); BASOPHILS 0.5 % (0.0-2.0); EOSINOPHILS 2.8 % (0.0-3.0); HEMATOCRIT 23.1 % (37.0-47.0); HEMOGLOBIN 7.1 gm/dL (12.0-15.0); LYMPHOCYTES 15.4 % (24.0-44.0); MCH 21.7 pg (26.0-34.0); MCHC 30.8 g/dL (28.0-37.0); MCV 70.4 fL (80.0-100.0); MONOCYTES 8.7 % (1.0-8.0); PLATELET COUNT 296 thou/uL (150-400); POLYS 72.6 % (36.0-66.0); RBC 3.29 mil/uL (4.20-5.00); WBC 7.3 thou/uL (4.0-11.0)
[2021-09-19 06:54] LABS: CALCIUM 9.9 mg/dL (8.5-10.1); CREATININE 1.7 mg/dL (0.6-1.0)
--- NOTE | 2021-09-19 07:46 | HC ---
[facility] [address] CONSULTATION Name: SHEYLA CID Room #: 352-P ADM IN M.R.#: [id number] Admission: 09/17/21 Attend Phys: Noe Paulson MD Discharge: Date of : 36 Report #: [id number] THIS REPORT FOR: cc: JONAH ENGLISH Physician not on staff Pablo Matos MD ~ DATE OF SERVICE: 09/18/2021 INFECTIOUS DISEASE CONSULTATION ATTENDING PHYSICIAN: Dr. Cool. REASON FOR EVALUATION: Positive COVID-19 testing. HISTORY OF PRESENT ILLNESS: Chart reviewed. The patient examined. This is an 86-year-old woman with known history of dementia, previous stroke, who resides in the facility. She notes that she is having some mild dyspnea. While there, she was evaluated and found to have a hemoglobin of 6.1. This was felt to be secondary to gastrointestinal hemorrhage. This prompted transfer to the Emergency Room, again was confirmed. She was transfused packed red blood cells. In addition, she was found to be in renal failure with a creatinine of 2.4. Coronavirus testing at that point was positive. It was notable, it had been positive in August. She is unable to give too many details of her history. She has been afebrile during the course of her stay here. She is maintained on ambient air at this point. She has not been initiated on antimicrobial therapy. She has been given some vitamins and a dose of dexamethasone. ALLERGIES: LATEX, SULFA, MORPHINE. CURRENT MEDICATIONS: Include ascorbic acid, pantoprazole, zinc, acetaminophen, ondansetron as needed. PAST MEDICAL HISTORY: Previous stroke, dementia, history of PE, left lower extremity DVT, hypertension, hyperlipidemia, gastritis with Barajas's esophagitis, COPD, hypothyroidism, chronic lower extremity edema. SOCIAL HISTORY: Nonsmoker. No illicit drug use. Occasional ethanol. FAMILY HISTORY: Noncontributory. REVIEW OF SYSTEMS: Limited due to the patient's encephalopathy. PHYSICAL EXAMINATION: GENERAL: She appears chronically ill and undernourished. She is confused, pale, mild to moderate distress. VITAL SIGNS: Temperature 98.3, pulse 73, respirations 18, blood pressure [address] [address] CONSULTATION Name: SHEYLA CID BRIANNA Room #: 352-P [facility] IN .R.#: [id number] Admission: 09/17/21 Attend Phys: Noe Paulson MD Discharge: Date of : 36 Report #: [id number] 178/69. SKIN: Warm, dry, no rashes. HEENT: Normocephalic. Extraocular muscles intact. NECK: Supple. LUNGS: Diminished breath sounds. Very scattered crackles at the bases. HEART: Regular. Does have a soft systolic murmur. ABDOMEN: Mildly distended, somewhat firm, nontender. EXTREMITIES: No cyanosis. GENITOURINARY AND RECTAL: Deferred. LABORATORY DATA: CRP less than 2.0. TSH 2.624. Hemoglobin and hematocrit 7.5 and 25 posttransfusion. Coronavirus ____ now is positive. Electrolytes: Sodium 141, potassium 4.7, chloride 107, bicarbonate is 23, anion gap of 11, BUN and creatinine 50 and 2.4. Estimated GFR of 19, albumin 3.1, total protein 6.1. CBC: White count of 8.1 on admission. Platelet count of 330. ASSESSMENT AND PLAN: Positive coronavirus testing. At this point, she is not exhibiting significant evidence of any sort of infectious process. I think it is reasonable to check chest x-ray. She is mildly dyspneic, although she is severely anemic as well. It is difficult to ascertain based on talking to her given her degree of dementia, we will do some screening tests including in addition to chest x-ray and urinalysis. Check blood cultures as well. Monitor expectantly, certainly at risk for additional nosocomial related complications. <ELECTRONICALLY SIGNED> By: Pablo Matos MD 09/19/21 0746 [id number] Pablo Matos MD /nt
[2021-09-19 08:06] VITALS: BP 181/58
--- NOTE | 2021-09-19 13:51 | NUR ---
SW reviewed chart and spoke with nursing and attending physician. Pt remains on IV iron due to low hemoglobin. 5N consulted to evaluate pt for possible admission to inpt acute rehab. SW provided SNF list for nursing to provide to pt's dtr, Margie. Pt may be moved to another room, as she is out of Enhanced Isolation. JONG is following to assist as needed with discharge planning.
[2021-09-19 15:20] VITALS: BP 189/59
--- NOTE | 2021-09-19 19:15 | NUR ---
RN ASSMED PT'S CARE AT 0700-1900PM, PT IS A&OX3 ( PERSON, PLACE AND TIME), PT CAN FOLLOW COMMANDS, PT IS ON ROOM AIR , PT'S VS AND O2SAT ARE STABLE, RN HAS REPORTED TO HOSPITAL DR AND MOUSTAPHA LAI ABOUT PT'S HGB 7.1 TODAY, NEW ORDER RECEIVED, ORDER LAB CBC TOMORROW,
[2021-09-19 19:28] VITALS: BP 175/56
[2021-09-19 20:53] VITALS: BP 167/59
--- NOTE | 2021-09-19 22:37 | NUR ---
PT RESTING IN BED, EASILY AROUSED FOR VS AND ASSESSMENT. BED ALARM ON. LLE DRESSING DRY AND INTACT.
[2021-09-20 02:37] LABS: HEMATOCRIT 23.6 % (37.0-47.0); HEMOGLOBIN 7.2 gm/dL (12.0-15.0); MCH 21.7 pg (26.0-34.0); MCHC 30.6 g/dL (28.0-37.0); MCV 70.9 fL (80.0-100.0); RBC 3.33 mil/uL (4.20-5.00); RDW 22.3 % (10.5-14.5); WBC 8.1 thou/uL (4.0-11.0)
[2021-09-20 03:47] VITALS: BP 181/64
[2021-09-20 07:00] VITALS: BP 205/74
[2021-09-20 11:41] LABS: ABSOLUTE RETIC COUNT 0.0468 10^6/uL; OBSERVED RETIC COUNT 1.39 % (0.6-2.6)
[2021-09-20 13:00] VITALS: BP 151/58
--- NOTE | 2021-09-20 13:46 | NUR ---
JONG reviewed chart and spoke with nursing and attending physician. Pt is progressing towards goals for discharge. Pt remains on IV iron. Hgb 7.2 today. Hematology consulted. Pt's BP has been elevated. JONG discussed case with rehabilitation teacher who states they are able to accept pt when medically stable. Discharge to is anticipated for tomorrow. JONG spoke with pt's dtr, Margie, via phone to provide update and notify of N's acceptance. Pt's dtr is agreeable with discharge plan. Hospitalist office number provided to Margie, as she missed a call from attending physician earlier today. JONG is following to assist as needed with discharge planning.
[2021-09-20 15:00] VITALS: BP 150/60
[2021-09-20 19:48] VITALS: BP 129/48
[2021-09-21 00:09] VITALS: BP 155/50
[2021-09-21 01:15] LABS: CALCIUM 9.4 mg/dL (8.5-10.1); CREATININE 1.7 mg/dL (0.6-1.0); MAGNESIUM 1.7 mg/dL (1.8-2.4); POTASSIUM 4.3 mmol/L (3.5-5.1)
--- NOTE | 2021-09-21 01:29 | NUR ---
PT ALERT AND ORIENTED 3. FORGETFUL AT TIMES. BED ALARM IS ON. FALL PRECAUTIONS IN PLACE. VSS AFEBRILE . UNLABORED ON RA. DENIED PAIN. PT HAD 8BTS VTACH VSS. AFEBRILE.SAT 95%-96% AT THE TIME. FROZEN FOOD SELECTOR NOTIFIED. BMP, CBC DRAW PER LAB. MG 1.7. WAITING FOR FROZEN FOOD SELECTOR TO RESPOND.
[2021-09-21 04:07] VITALS: BP 156/88
--- NOTE | 2021-09-21 05:09 | NUR ---
PT RESTING QUIETLY PRESENTLY. NO C/O PAIN. NO S/S DISTRESS. VSS.ROGRESISNG TOWARDS D/C GOALS.
[2021-09-21 07:36] LABS: HEMATOCRIT 24.9 % (37.0-47.0); HEMOGLOBIN 7.4 gm/dL (12.0-15.0); MCH 21.3 pg (26.0-34.0); MCHC 29.8 g/dL (28.0-37.0); MCV 71.7 fL (80.0-100.0); RBC 3.48 mil/uL (4.20-5.00); WBC 7.9 thou/uL (4.0-11.0)
[2021-09-21 07:37] VITALS: BP 167/78
--- NOTE | 2021-09-21 11:12 | NUR ---
DISCHARGE NOTE: JONG reviewed chart and spoke with nursing and attending physician. Pt is medically stable to discharge to 5N today. JONG confirmed with [facility] account liaison. Awaiting discharge ppwk at this time. Pt will be admitted to room 513. JONG spoke with pt's dtr, Margie, via phone to provide update ant notify of new room number. Rehab team conference scheduled discussed with pt's dtr. Plan is for pt to return to [facility] after rehab stay. Case mgmt following to assist as needed with discharge planning.
[2021-09-21] MEDS ORDERED: VITAMIN D325 MC2 PO (11:25)
--- NOTE | 2021-09-21 14:22 | NUR ---
assumed patient care at 0700. A/O X4. PLEASANT ON RA. DENIES PAIN. WILL DC TO [facility]N SOON.
[2021-09-21 16:32] VITALS: BP 142/51
[2021-09-21 21:06] LABS: IgA 96 mg/dL (64-422); IgG 398 mg/dL (586-1602)
[2021-09-21 22:06] LABS: IgM 26 mg/dL (26-217)
[2021-09-24 19:07] LABS: GLOBULIN TOTAL 2.2 g/dL (2.2-3.9); M-SPIKE Not Observed g/dL (Not Observed)
[2021-09-24 21:06] LABS: ANA INTERPRETATION Negative (())
== END 2021-09-21 18:15 | DRG 377 ==
LOC: ER 18:49 → 3W 20:36 → EROBS 20:36 → 3W 23:34
PROVIDERS: Emergency Medicine; Internal Medicine; Nurse Practitioner; Nurse Practitioner Family; Specialist; ADMIT Hospitalist; ATTEND Hospitalist
PROC: 30233N1 Transfusion of Nonautologous Red Blood Cells into Peripheral Vein, Percutaneous Approach (ICD-10-PCS; principal; 2021-09-17)
DX: K92.2 Gastrointestinal hemorrhage, unspecified (principal); U07.1 COVID-19; N17.0 Acute kidney failure with tubular necrosis; E44.1 Mild protein-calorie malnutrition; D50.9 Iron deficiency anemia, unspecified; E53.8 Deficiency of other specified B group vitamins; I48.91 Unspecified atrial fibrillation; Z96.652 Presence of left artificial knee joint; J44.9 Chronic obstructive pulmonary disease, unspecified; E03.9 Hypothyroidism, unspecified; I10 Essential (primary) hypertension; E78.5 Hyperlipidemia, unspecified; N18.9 Chronic kidney disease, unspecified; F03.90 Unspecified dementia, unspecified severity, without behavioral disturbance, psychotic disturbance, mood disturbance, and anxiety; Z66 Do not resuscitate; S81.802A Unspecified open wound, left lower leg, initial encounter; X58.XXXA Exposure to other specified factors, initial encounter; Y93.89 Activity, other specified; R53.81 Other malaise; Z79.01 Long term (current) use of anticoagulants; Z90.710 Acquired absence of both cervix and uterus; Z86.73 Personal history of transient ischemic attack (TIA), and cerebral infarction without residual deficits; Z90.49 Acquired absence of other specified parts of digestive tract; Z86.711 Personal history of pulmonary embolism; Z86.718 Personal history of other venous thrombosis and embolism; Z88.2 Allergy status to sulfonamides; Z88.6 Allergy status to analgesic agent; Z91.040 Latex allergy status; Y92.89 Other specified places as the place of occurrence of the external cause; Y99.8 Other external cause status; Z68.26 Body mass index [BMI] 26.0-26.9, adult
CPT/HCPCS: 10879

== ENCOUNTER 2021-09-21 07:21 | Inpatient (IN) | payer OTHER, BC ==
[~2021-09-21] VITALS: Ht 157.5 cm; Wt 67.5 kg
[~2021-09-21 07:21] MED LIST changes: +LEVOFLOXACIN500 MG PO; +MUCINEX600 MG PO; +PROAIR HFA8.5 GM INH; +SYMBICORT160 MCG/4. INH; +Vitamin b12 PO
[2021-09-21] MEDS ORDERED: VITAMIN D325 MC2 PO (11:25)
[2021-09-21 20:00] VITALS: BP 127/38
--- NOTE | 2021-09-22 02:02 | NUR ---
assumed care approx 1900 evening 09/21. pt arrived to unit from [facility] approx 1800. pt sitting up in bed, awake and oriented yet forgetful and falling asleep and appears tired. pt not able to answer memory questions completely. pt denied pain. pt took hs meds with water tolerating well. pt sleeping well. bed alarm on and call light in reach. will continue to monitor.
[2021-09-22 08:00] VITALS: BP 155/48
[2021-09-22 14:01] LABS: HEMATOCRIT 25.4 % (37.0-47.0); HEMOGLOBIN 7.7 gm/dL (12.0-15.0); MCHC 30.5 g/dL (28.0-37.0); MCV 72.2 fL (80.0-100.0); RBC 3.52 mil/uL (4.20-5.00); RDW 23.8 % (10.5-14.5); WBC 10.7 thou/uL (4.0-11.0)
[2021-09-22 14:12] LABS: CALCIUM 9.6 mg/dL (8.5-10.1); POTASSIUM 4.2 mmol/L (3.5-5.1)
--- NOTE | 2021-09-22 15:56 | NUR ---
REMAINS FORGETFUL AND AT TIMES IMPULSIVE. ABLE TO MAKE NEEDS KNOWN. MEDS WHOLE WITH THIN LIQUIDS. DENIES PAIN OR DISCOMFORT.
[2021-09-22 23:11] VITALS: BP 153/57
--- NOTE | 2021-09-23 01:56 | NUR ---
PATINET CARE WAS RESUMED AT 1900. SHE IS ALERT AND ORIENTED X3. SHE IS A MINI ASSIST WITH CARE. LUNGS ARE CLEAR BS ACTIVE X4 QUADS. SHE DENIES PAINS AT THIS TIME.SHE TOOK HER MEDS WHOLE. BED IS LOW, LOCKED AND ALARMED. SALINE LOCK NOTED TO HER LEFT WRIST. DRESSING TO LEFT BRYANT IS INTACT. CONTINUE CARE
[2021-09-23 07:15] VITALS: BP 152/53
--- NOTE | 2021-09-23 11:02 | HC ---
[facility] [place] [address] CONSULTATION Name: SHEYLA CID Room #: 513-P ADM IN M.R.#: [id number] Admission: 09/21/21 Attend Phys: Mckay Martin MD Discharge: Date of : 36 Report #: [id number] THIS REPORT FOR: cc: JONAH ENGLISH - Family physician unknown Dk Triplett MD ~ DATE OF SERVICE: 09/23/2021 Wound Care Consultation Note REASON FOR CONSULTATION: Laceration, contusion with suture repair of left leg. HISTORY OF PRESENT ILLNESS: The patient is an 86-year-old woman admitted to [facility] from her assisted living facility due to severe anemia, hemoglobin 7.7, hematocrit 25.4. She suffers long-term from dementia and COPD. The patient sustained traumatic contusion laceration to her left leg, which was suture repaired. Wound care was consulted due to the leg wound. PAST MEDICAL HISTORY: Severe anemia, being evaluated, with iron deficiency, chronic anticoagulation for atrial fibrillation, acute kidney insufficiency, creatinine 2.0, dementia, COPD, mobility impairment. Status post cerebrovascular accident. REVIEW OF SYSTEMS: The patient has some pain of the leg, but she feels it is getting better. MEDICATIONS: Include cholecalciferol, thiamine, magnesium, pantoprazole, hydralazine, cefuroxime, folic acid, sodium chloride, amlodipine, lisinopril, sertraline, levothyroxine, metoprolol, zinc sulfate, Zofran. PAST SURGICAL HISTORY: Tonsillectomy, hysterectomy, cholecystectomy, left leg vascular surgery in 1966 and 2006, left knee replacement. SOCIAL HISTORY: The patient is an active smoker. PHYSICAL EXAMINATION: GENERAL: Shows a well-appearing elderly woman who is alert, pleasant, conversant. She is sitting in chair, eating breakfast. HEENT: Mucous membranes are moist. NECK: Supple. ABDOMEN: Soft. EXTREMITIES: Exam shows a 7 cm linear laceration of her left pretibial area. This is sutured closed with nylon sutures. There is some mild surrounding ecchymosis. There is minimal drainage. There is some discoloration due to inflammation and hematoma. Wound does not appear to be infected. There is no purulence. Wound was dressed with Xeroform, ABD, Kerlix and an Chase wrap. [address] [address] CONSULTATION Name: SHEYLA CID BRIANNA Room #: 513-P [facility] IN ..#: [id number] Admission: 09/21/21 Attend Phys: Mckay Martin MD Discharge: Date of : 36 Report #: [id number] palpable pulse in the left foot. IMPRESSION: 1. An 86-year-old woman admitted for iron deficiency anemia. 2. Dementia. 3. Chronic obstructive pulmonary disease. 4. Atrial fibrillation, on chronic anticoagulation. 5. Recent COVID positive. 6. Chronic kidney disease stage III. 7. Status post cerebrovascular accident. 8. History of deep vein thrombosis. 9. Contusion laceration of left leg suture repaired. Wound does not appear infected. Suture line is intact. There is minimal drainage. PLAN: We will continue to observe this wound for healing. If there is trouble with healing, then further vascular evaluation could be done. We will dress the wound with Xeroform, ABD, Kerlix, Chase wrap. <ELECTRONICALLY SIGNED> By: Dk Triplett MD 09/23/21 1102 0830 0842 Dk Triplett MD /nt
--- NOTE | 2021-09-23 15:42 | NUR ---
ASSUMED CARE OF PATIENT AT 0700. A&OX3 TO 4. ON RA, UP WITH 1 TO BSC. MEDS WHOLE WITH WATER. PATIENT DROPPED SEVERAL MORNING MEDS ON THE FLOOR AND AFTER COMPLETING PILL IDENTIFICATION, PATIENT GOT ALL OF HER MEDICATIONS. FOLIC ACID AND FERROUS ADDED TO MEDICATION REGIMENT. BRYANT LACERATION REDRESSED PER ORDER. PATIENT PROGRESSING TOWARD POC.
[2021-09-23 18:00] VITALS: BP 145/53
--- NOTE | 2021-09-23 22:56 | NUR ---
EDUCATION R/T PRAFO BOOT PROVIDED FOR PATIENT AND BOOTS APPLIED BILAT. PT REPOSITIONED X 2 THIS EVENING, AND DEMONSTRATED ABILITY TO SHIFT AND REPOSITION SELF WITH REMINDERS. PT HAS PAIN IN RT FOOT ARCH, AND ANKLE FLEXION STRAP UTILIZED TO ASSIST WITH POSSIBLE PLANTAR FASCITIS CONCERNS, WHICH PT NOTED WAS COMFORTABLE. ROUNDING HOURLY, AND PT CURRENTLY RESTING WITH EYES CLOSED.
--- NOTE | 2021-09-24 01:22 | NUR ---
pt refused to continue use of prafo boots, and was attempting to remove these when the bed alarm sounded. RN assisted her to remove them and pt resting in bed with alarm back on.
--- NOTE | 2021-09-24 05:29 | NUR ---
PATIENT CARE WAS RESUMED AT 0130. SHE IS IN BED WITH EYES CLOSED. SHE IS CONTINET OF BOWEL AND BLADDER. DENIES DISCOMFORT AT THIS TIME. LIKES HER HER DOOR CLOSED AND ABLE TO VERBALISE HER NEEDS. LBED IS LOW, LOCKED AND ALARMED.
[2021-09-24 08:16] VITALS: BP 165/48
--- NOTE | 2021-09-24 08:49 | NUR ---
INITIAL REHAB ASSESSMENT: Received consult. Pt was admitted to acute rehab on 09/21/2021 from . Pt was initially admitted from [facility] due to anemia. Hemoglobin was 6.1 Pt had blood tranfusion. GI consulted. Pt lives in the AL apts at [facility]. Pt uses a walker and is able to do ADLs with some cues. Pt is on service with [facility] for therapy. Pt with hx of dementia. SW spoke with pt's dtr, Margie, via phone. Introduced role of SW. Pt lives in an AL apt at [facility]. No hx of SNF placement in the past. Pt's PCP is Dr. Dodge, which is the facility director medical at [facility]. Plan is for pt to reutrn to her AL apt and resume HH services with [facility]. Case mgmt is following to assist as needed with discharge planning.
--- NOTE | 2021-09-24 17:13 | NUR ---
THIS NURSE ASSUMED CARE OF PATIENT AT 0700. PATIENT FORGETFUL AND VERY CONFUSED. LAST BM 09/22. PAIN IN ARCHES AND MAY NEED BOOTS THIS EVENING. IV SL LEFT WRIST. LUNGS DIMINISHED AND ON RA. WOUND NURSE APPLIED SPECIAL ADHESIVE BANDAGE ON LOWER LEFT LEG EXTREMITY. INCISION WITH SUTURES. DRY AND INTACT. LOWER LEFT LEG EXTREMITY WRAPPED IN LETICIA BANDAGES. PATIENT VISITED BY TWO FAMILY MEMBERS THIS AFTERNOON.
[2021-09-24 20:00] VITALS: BP 166/54
[2021-09-25 06:50] LABS: ABSOLUTE NEUTROPHILS 9.5 thou/uL (1.4-8.2); BASOPHILS 0.9 % (0.0-2.0); EOSINOPHILS 3.3 % (0.0-3.0); HEMOGLOBIN 7.1 gm/dL (12.0-15.0); LYMPHOCYTES 7.2 % (24.0-44.0); MCH 21.8 pg (26.0-34.0); MCHC 29.6 g/dL (28.0-37.0); MCV 73.8 fL (80.0-100.0); MONOCYTES 8.1 % (1.0-8.0); PLATELET COUNT 335 thou/uL (150-400); POLYS 80.5 % (36.0-66.0); RBC 3.25 mil/uL (4.20-5.00); RDW 23.8 % (10.5-14.5); WBC 11.8 thou/uL (4.0-11.0)
[2021-09-25 07:04] LABS: CALCIUM 9.6 mg/dL (8.5-10.1); CREATININE 1.6 mg/dL (0.6-1.0); MAGNESIUM 2.2 mg/dL (1.8-2.4); POTASSIUM 4.9 mmol/L (3.5-5.1)
[2021-09-25 08:00] VITALS: BP 178/50
[2021-09-25 08:25] LABS: ANISOCYTOSIS 3+; POIKILOCYTOSIS 1+
[2021-09-25 08:26] LABS: HYPOCHROMASIA 1+; MICROCYTES 1+; POLYCHROMASIA 1+
--- NOTE | 2021-09-25 17:27 | NUR ---
THIS NURSE ASSUMED CARE OF PATIENT AT 0700. PATIENT A&O X 2 WITH FORGETFULNESS AND SOME CONFUSION. PATIENT CONTINENT. SHORTNESS OF BREATH WITH EXERTION. PATIENT HAS O2 THERAPY OF 1-2 LITERS NASAL CANNULA WITH LUNGS WHEEZING. PATIENT ON BOARD WITH RT. PATIENT HAS DRESSING ON LOWER LEFT EXTREMITY FOR LACERATION WITH LETICIA BANDAGE. PATIENT HAD BOWEL MOVEMENT TODAY.
[2021-09-25 19:58] VITALS: BP 170/55
--- NOTE | 2021-09-26 02:24 | NUR ---
ASSUMED CARE AT 1915 OF 09/25. PATIENT IS A&O TO SELF, PLEASENTLY CONFUSED AND IMPULSIVE. REPEATEDLY SET OFF BED ALARM THIS SHIFT, REEDUCATION ABOUT CALL LIGHT USAGE PROVIDED. PATIENT IS RE-ORIENTED TO TIME, PLACE AND SITUATION, EASILY REDIRECTED. MINIMAL ASSIST WITH TRANSFERS TO BS, USING GB AND WALKER. EXHIBITING SOB AT EXERTION, ON CONTINUOUS 2L OF O2 VIA NC. FALL PRECAUTIONS IN PLACE, CALL LIGHT WITHIN REACH. SLEEPING ON HOURLY ROUNDS, WILL CONTINUE TO MONITOR.
[2021-09-26 09:40] VITALS: BP 138/38
[2021-09-26 09:44] VITALS: BP 138/38
--- NOTE | 2021-09-26 09:47 | NUR ---
PT SITTING UP IN CHAIR SLEEPING. PT EASILY ABLE TO AWAKE WITH VERBAL STIMULI. PT HAS OXYGEN ON 1L NC. PT DISTOLIC BP RUNS LOW 58, SYSTOLIC 150. PT DENIES ANY ISSUES WITH LIGHTHEADNESS. PT TOOK MEDS THIS AM WITHOUT ANY ISSUES. BP WAS ADDRESSED WITH IAN COLIN PRIOR TO GIVING MEDS. PT BP RECHECKED ALSO PRIOR TO ADM BP MEDS. 138/38, PULSE 86. PT UP WITH WALKER WITH STAND-BY ASSIST. PT HAS DRESSING TO LLE.
[2021-09-26 19:10] VITALS: BP 132/52
--- NOTE | 2021-09-27 03:58 | NUR ---
ASSUMED CARE AT 1915 OF 09/26. PATIENT IS A&O TO SELF AND IMPULSIVE. DENIES PAIN OR SHORTNESS OF BREATH. ON CONTINUOUS 1L OF O2 VIA NC OVERNIGHT. MINIMAL ASSIST WITH TRANSFERS AND AMBULATION TO TOILET, USING GB AND WALKER. LETICIA WRAP TO LLE IN PLACE AND INTACT. FALL PRECAUTIONS IN PLACE, CALL LIGHT WITHIN REACH. WILL CONTINUE TO MONITOR.
[2021-09-27 06:13] LABS: HEMOGLOBIN 6.6 gm/dL (12.0-15.0)
[2021-09-27 06:15] LABS: HEMATOCRIT 21.8 % (37.0-47.0); MCH 22.7 pg (26.0-34.0); MCHC 30.1 g/dL (28.0-37.0); MCV 75.3 fL (80.0-100.0); PLATELET COUNT 274 thou/uL (150-400); RDW 26.5 % (10.5-14.5); WBC 7.8 thou/uL (4.0-11.0)
[2021-09-27 06:21] LABS: CALCIUM 9.1 mg/dL (8.5-10.1); CREATININE 1.7 mg/dL (0.6-1.0); MAGNESIUM 2.1 mg/dL (1.8-2.4); POTASSIUM 5.1 mmol/L (3.5-5.1)
[2021-09-27 08:50] VITALS: BP 116/33
[2021-09-27 10:21] LABS: ABSOLUTE NEUTROPHILS 5.3 thou/uL (1.4-8.2); ANISOCYTOSIS 3+; HYPOCHROMASIA 1+; POLYCHROMASIA 1+
--- NOTE | 2021-09-27 16:59 | NUR ---
Team meeting, recommendation: patient has low hgb 6.6, going to have blood transfusion today. b/p down. Had xray of right foot pain, has sutures to foot wound left side. DC to [facility] with extra assist if needed. [facility] ( pt, ot, and nursing). DC 10/04.
[2021-09-27 18:18] VITALS: BP 155/62; BP 164/67
--- NOTE | 2021-09-27 18:37 | NUR ---
BLOOD CHECKED BY 2 RN PRIOR TO ADMINISTRATION AT BEDSIDE, THIS RN UNABLE TO CHANGE TIME TO REFLECT THAT THIS WAS CHECKED AT 1832 1 MINUTE PRIOR TO TRANSFUSION. PT AWAKENED AFTER NAPPING AND WAS INITIALLY DISORIENTED, BUT AFTER SEVERAL MINUTES WAS ABLE TO CLEAR, WAS ORIENTED X 3, AND VERBALIZED UNDERSTANDING OF REASON FOR BLOOD, POTENTIAL TRANSFUSION REACTIONS, AND WAS ABLE TO GIVE CONSENT. SHIRLENE SULTANA HAD INITIALLY CALLED FAMILY TO PROVIDE CONSENT, BUT WAS UNALBLE TO REACH THEM. DR. BURTON WAS NOTIFIED, AND GAVE AUTHORIZARION TO GIVE BLOOD EMERGENTLY DUE TO SIGNIFICANTLY DROPPING HGB. HOWEVER, DURING THIS TIME THE PATIENT ALSO CLEARED AND DEMONSTRATED APPROPRIATE ORIENTATION TO PROVIDE CONSENT HERSELF. PT IS CURRENTLY RESTING WITH EYES CLOSED AND RESPIRATIONS UNLABORED. INITIAL BLOOD STARTED AT 1833, RN REMAINS AT BEDSIDE. BLOOD RUNNING AT 100 CC PER HOUR WITH NO RIGNS OF REACTION
--- NOTE | 2021-09-27 18:51 | NUR ---
RATE INCREASED AT THIS TIME TO 150/HR. IV PATENT, INFUSING WELL INTO RT FOREARM WITH NO SIGNS OF INFILTRATION. PT RESTING WITH EYES CLOSED, VSS, RESPIRATIONS UNLABORED. PT EASILY AWAKENED AND ABLE TO ANSWER ORIENTATION QUESTIONS APPROPRIATELY. NO SIGNS OF REACTION.
[2021-09-27 19:33] VITALS: BP 171/66
--- NOTE | 2021-09-27 20:28 | NUR ---
THIS NURSE ASSUMED CARE OF PATIENT AT 0700. PATIENT ON NC AT 1-2 LITERS WITH SHORTNESS OF BREATH UPON EXERTION. PATIENT RECEIVED ONE UNIT OF AB POSITIVE BLOOD D/T HGB OF 6.6. PATIENT EXPERIENCED NOT ADVERSE REACTIONS.
[2021-09-27 22:08] VITALS: BP 158/66
--- NOTE | 2021-09-28 02:46 | NUR ---
assumed care approx 0 evening 09/27. pt lying in bed with head of bed slightly elevated and pt sleeping. pt receiving unit of blood to right forearm without difficulty. vss. no adverse reactions. pt on 02 at 1L per n/c. pt took hs meds with water tolerating well. transfusion completed approx 2099 with no adverse reaction. pt up to bathroom once so far tonight with 1 assist. bed alarm on and call light in reach. will continue to monitor.
[2021-09-28 05:13] LABS: HEMATOCRIT 26.9 % (37.0-47.0); MCH 24.7 pg (26.0-34.0); MCV 77.3 fL (80.0-100.0); RBC 3.48 mil/uL (4.20-5.00); RDW 26.4 % (10.5-14.5); WBC 6.9 thou/uL (4.0-11.0)
[2021-09-28 05:32] LABS: HEMOGLOBIN 8.6 gm/dL (12.0-15.0)
--- NOTE | 2021-09-28 09:04 | NUR ---
PT RESTING IN THE CHAIR THIS AM. PT DENIES ANY PAIN. PT HAS WOUND TO LLE THAT IS WRAPPED IN LETICIA WRAP. PT LUNGS CLEAR. PT TOOK MEDS WHOLE WITH WATER. PT UP WITH WALKER WITH STAND-BY ASSIST. PT DID HAVE A SMALL BM DURING THE PAGE. NEED TO COLLECT A STOOL SAMPLE FOR BLOOD.
[2021-09-28 09:58] LABS: CALCIUM 10.2 mg/dL (8.5-10.1); CREATININE 1.7 mg/dL (0.6-1.0); POTASSIUM 5.7 mmol/L (3.5-5.1)
[2021-09-28 19:40] VITALS: BP 168/90
--- NOTE | 2021-09-29 00:17 | NUR ---
assumed care approx 1900 evening 09/28. pt sitting up in bed at change of shift. pt impulsive in evening getting out of bed without calling. pt forgetful and somewhat confused. back to bed and appears to be sleeping soundly. pt took hs meds with water tolerating well. bed alarm on and call light in reach. will continue to monitor.
[2021-09-29 04:57] LABS: BASOPHILS 1.1 % (0.0-2.0); EOSINOPHILS 0.5 % (0.0-3.0); HEMATOCRIT 28.2 % (37.0-47.0); HEMOGLOBIN 8.9 gm/dL (12.0-15.0); LYMPHOCYTES 9.5 % (24.0-44.0); MCH 24.3 pg (26.0-34.0); MCHC 31.4 g/dL (28.0-37.0); MCV 77.4 fL (80.0-100.0); MONOCYTES 5.6 % (1.0-8.0); PLATELET COUNT 325 thou/uL (150-400); POLYS 83.3 % (36.0-66.0); RBC 3.65 mil/uL (4.20-5.00); RDW 27.6 % (10.5-14.5); WBC 9.5 thou/uL (4.0-11.0)
[2021-09-29 04:58] LABS: CREATININE 1.7 mg/dL (0.6-1.0); MAGNESIUM 1.9 mg/dL (1.8-2.4)
[2021-09-29 05:01] LABS: POTASSIUM 4.6 mmol/L (3.5-5.1)
[2021-09-29 08:00] VITALS: BP 155/57
[2021-09-29 09:00] VITALS: BP 155/57
--- NOTE | 2021-09-29 16:12 | NUR ---
THIS NURSE HAD GOT PT TO BATHROOM AND CHANGED BRIEF. PT WAS NOT DONE GOING TO THE BATHROOM THIS NURSE TOLD AIDE WHO WAS STANDING IN THE DINING ROOM WATCHING TV THAT PT WAS IN THE BATHROOM AND NEEDED ASSISTANCE BACK TO BED WHEN PT WAS FINISHED GOING TO THE BATHROOM. THIS NURSE WENT TO LUNCH. THIS NURSE CAME BACK FROM LUNCH AND DID NOT SEE PT IN BED. THIS NURSE IMMEDIATELY LOOKED INTHE BATHROOM AND THEN NOTICED PT ON FLOOR OVER BY THE WINDOW. THE FALL WAS UNWITNESSED, PT IS ALERT TO SELF AND PLACE, PT IS CNFUSED AND WANTS TO GO HOME. NO INJURY, DR. BURTON NOTIFIED, LM FOR DAUGHTER ON HOME ANSWERING MACHINE.
--- NOTE | 2021-09-29 17:15 | NUR ---
DAUGHTER CALLED BACK AND THIS NURSE DISCUSSED FALL WITH HER.
[2021-09-29 19:35] VITALS: BP 169/59
--- NOTE | 2021-09-30 02:49 | NUR ---
ASSUMED CARE AT 1915 OF 09/29. PATIENT IS PLEASANTLY CONFUSED, ORIENTED TO SELF AND TIME. REQUIRED REORIENTATION TO PLACE AND SITUATION. REMAINS IMPULSIVE, SO FREQUNET OBSERVATION IMPLEMENTED. NO NEW INJURIES NOTED FROM FALL ON PREVIOUS SHIFT. DRESSING AND LETICIA WRAP ON LLE REMAINS INTACT AND INPLACE. NO C/O PAIN REPORTED BY PATIENT. PATIENT WAS ON RA AT START OF SHIFT WITH 02 SAT REMAINING ABOVE 94%. AROUND MIDNIGHT PATIENT WAS FOUND TRYING TO GET OUT OF BED TO USE BATHROOM, MINIMAL ASSIST WITH TRANSFER AND AMBULATION TO BATHROOM USING GB AND WALKER. FALL PRECAUTIONS IN PLACE, BED ALARM ON, FREQUENT OBSERVATION CONTINUED. WILL CONTINUE TO MONITOR.
[2021-09-30 07:00] VITALS: BP 147/98
[2021-09-30 19:16] VITALS: BP 173/65
--- NOTE | 2021-10-01 03:17 | NUR ---
ASSUMED CARE AT 191 OF 09/30. PATIENT IS A&OX2, CONFUSED AT TIMES BUT REDIRECTABLE. CONTINUES TO BE IMPULSIVE. DENIES PAIN, SOB NOTED AT EXERTION. MINIMAL TO SBA WITH TRANSFERS, USING GB AND WALKER. FALL PRECAUTIONS IN PLACE, CALL LIGHT WITHIN REACH. FREQUENT OBSERVATION CONTINUED. WILL CONTINUE TO MONITOR.
[2021-10-01 08:43] VITALS: BP 169/66
--- NOTE | 2021-10-01 10:00 | NUR ---
PT SITTING UP IN RECLINER CHAIR AND RESTING AT THIS TIME. PT WAS WORKING WITH THERAPY. PT DENIES ANY PAIN. LLE IS WRAPPED AND NO SIGNS OF DRAINAGE. PT TOOK HER MEDS WHOLE WITH WATER. PT IS SLEEPY THIS AM AFTER THERAPY. PT WAS ON ROOM AIR AND OXYGEN CHECKED AND IS 92% ON ROOM AIR.
--- NOTE | 2021-10-01 15:10 | NUR ---
TOOK OUT 16 SUTURES OUT OF LLE. PT TOLERATED WELL. CLEANED WITH NS AND ALSO PLACED STERI-STRIPS OVER SUTURE AREAS. LEFT OPEN TO AIR.
[2021-10-01 19:34] VITALS: BP 159/55
--- NOTE | 2021-10-02 01:53 | NUR ---
NO ACUTE EVENTS THIS SHIFT. PT TRANSFERED TO BED FORM WITHOUT CONCERN. BILATERAL LOWER EXTREMEDIES ARE SLIGHTLY EDEMATOUS. LACERATION TO LEFT BRYANT IS OPEN TO AIR, NO SIGNS OF INFECTION AT THIS TIME. PT RESTING MOST OF SHIFT. EXPRESSES NEEDS APPROPRIATELY.
[2021-10-02 08:00] VITALS: BP 170/53
--- NOTE | 2021-10-02 09:45 | NUR ---
PT SITTING UP IN CHAIR FOR BREAKFAST. PT DENIES ANY PAIN AT THIS TIME. PT HAS CRACKLES BILATERAL RLL AND LLL. NO COUGH NOTED. PT ON ROOM AIR. PT UP WITH WALKER WITH STAND-BY ASSIST. PT HAS A FLAT AFFECT.
--- NOTE | 2021-10-02 15:00 | NUR ---
PT DTR CALLED AND CONCERNED ABOUT HER HGB LEVEL AND WHY SHE IS NOT MAKING ENOUGH BLOOD AND ALSO SHE WAS TAKING HYDROLAZINE BID AND WANTED TO KNOW IF SHE WAS ON THAT FOR BP. ADDRESSED THESE QUESTIONS TO IAN COLIN AND SHE SAID SHE WILL CALL THE DTR WITH [employer].
[2021-10-02 19:55] VITALS: BP 176/53
--- NOTE | 2021-10-03 03:11 | NUR ---
PT A&O X4 BUT FORGETFUL. SB ASSIST WITHIN ROOM. ABLE TO PERFORME ADLs SUCH DRESSING INDEPENDENTLY OVERNIGHT. PT DENIES PAIN. WEEPING EDEMA PRESENT IN BILATERAL LOWER EXTREMEDIES- LEFT GREATER THAN RIGHT. PT HAS RESTED WELL OVERNIGHT. VSS, NO ACUTE EVENTS
[2021-10-03 05:28] LABS: HEMATOCRIT 32.2 % (37.0-47.0); MCH 24.3 pg (26.0-34.0); MCV 78.2 fL (80.0-100.0); RBC 4.12 mil/uL (4.20-5.00); RDW 28.1 % (10.5-14.5); WBC 7.9 thou/uL (4.0-11.0)
[2021-10-03 08:00] VITALS: BP 173/57
[2021-10-03 10:44] LABS: CALCIUM 9.5 mg/dL (8.5-10.1); CREATININE 1.6 mg/dL (0.6-1.0); POTASSIUM 4.2 mmol/L (3.5-5.1)
[2021-10-03 13:00] VITALS: BP 166/64
--- NOTE | 2021-10-03 14:17 | NUR ---
Update called and faxed to [facility] in [place] attn to their DON Khadra. Khadra will be out in the morning to eval pt for return to the [place] [facility] but based on her therapy notes she is doing well. They do not provide transportation. Message left for pt's dtr to discuss dc transport as pt could go in a car if dtr is able to take her. Therapy reports pt needs a FWW at dc. [facility] can accept the referral and will issue one in the morning for her to take home. [facility] notified of dc and clinical update faxed. They can accept for readmission and will need orders faxed and confirmed with intake tomorrow. Unit RN updated on dc planning efforts.
[2021-10-03 14:40] VITALS: BP 173/57
[2021-10-03 18:10] VITALS: BP 156/44
[2021-10-03 18:40] VITALS: BP 145/70
--- NOTE | 2021-10-03 18:46 | NUR ---
Assumed care ot pt at 0700. Oriented x 4, up with minimal assist and walker. Pt excited to discharge back to facility tomorrow. Lung sounds clear over diminished on room air, heart tones normal, no edema. Laceration site noted on L lower leg. Steri strips in place, well approximated. Daughter informed that facility will arrive tomorrow morning to assess patient before she will discharge back to them. Blood pressure reading during afternoon slightly low with diastolic readings in 40s. When checked manually, pt's blood pressure 160s/60s to 150s/70s, as opposed to automatic reading of 160s/40s or 30s. Pt not symptomatic, manual blood pressure reading verified, scheduled hydralazine given as ordered. No concerns at this time.
[2021-10-03 19:50] VITALS: BP 151/57
[2021-10-04 07:25] VITALS: BP 173/60
[2021-10-04] MEDS ORDERED: IPRAT-ALBUT 0.5-3 ML INH (08:41)
[2021-10-04] MEDS ORDERED: ELIQUIS2.5 MG PO (08:41)
[2021-10-04] MEDS ORDERED: FOLIC ACID1 MG PO (08:41)
[2021-10-04] MEDS ORDERED: PROTONIX 20 MG20 MG PO (08:41)
[2021-10-04] MEDS ORDERED: IRON325 PO (08:41)
--- NOTE | 2021-10-04 09:39 | NUR ---
CM spoke with the DON at [facility], updates reviewed and they are able to accept her back to [facility] and meet her needs. [facility], Daughter will be her around 1300 to transport emmanuel back to [facility]. Weekly team meeting, cont. with patrikc. orders to be faxed to [phone].
[2021-10-04] MEDS ORDERED: HYDRALAZINE 2525 MG PO (10:05)
[2021-10-04 11:45] VITALS: BP 110/67
--- NOTE | 2021-10-04 12:45 | NUR ---
PT ALERT AND ORIENTED X 3-4. COMPLIANT WITH MEDICATIONS. HELD NOON DOSE OF HYDRALAZINE BP WAS BELOW PARAMETERS. DAUGHTER HERE TO TRANSPORT PT TO [place]. PT'S BELONGINGS AND COPY OF DC INSTRUCTIONS SENT WITH PT. PT ESCORTED BY STAFF VIA W/C TO VEHICLE. NURSE TO NURSE REPORT GIVEN TO CARLA AT [facility] AT 1155. PT DISCHARGED IN STABLE CONDITION.
--- NOTE | 2021-10-05 11:56 | NUR ---
CM clarified with MD and [employer] Plans Intelligence Officer if it is ok for emmanuel to only have pt and ot through [facility] at her home ( [facility], [facility]). yes it is ok and cm passed on information to [facility] liaison.
--- NOTE | 2021-10-06 17:52 | HC ---
[facility] [place] [address] CONSULTATION Name: SHEYLA CID Room #: 513-P [facility] M.R.#: [id number] Admission: 09/21/21 Attend Phys: Mckay Martin MD Discharge: 10/04/21 Date of : 37 Report #: [id number] THIS REPORT FOR: cc: JONAH ENGLISH - Family physician unknown Salvador Jones PhD ~ DATE OF SERVICE: 09/30/2021 NEUROBEHAVIORAL STATUS EXAM AGE: 86. ATTENDING PHYSICIAN: Mckay Martin MD TRANSPLANT REGISTERED NURSE: Salvador Jones, PhD CLINICAL PRESENTATION: The patient is an 86-year-old female admitted to [facility] from her assisted living placement. She carries a diagnosis of dementia and has a medical history that includes chronic kidney disease, COPD, atrial fibrillation, long-term anticoagulation, hyperlipidemia, hypertension, GERD, hypothyroidism, major depression and COVID 19. She was positive for COVID, but asymptomatic. Her neuropsychological consultation was requested to provide assistance in the assessment of cognitive and emotional status and provide recommendations and services. Prior to this most recent admission, she reports having been living in [facility]. The patient was confused initially in regard to the location of where she was living prior to her hospitalization. She was able to identify the [facility]. She had been there less than a year. She reports having been independent with basic, but not instrumental activities of daily living. 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 She is a high school graduate. The patient had 3 children. One child and her spouse are . The reason for her hospitalization was given as a fall. TECHNIQUES UTILIZED: Clinical interview, review of medical records, staff consultation and behavioral observation, mini mental status exam 2 standard version and clock drawing. EXAMINATION FINDINGS: The patient was alert and cooperative with the assessment. She accurately described events surrounding her admission. There is no evidence of aphasia. Her thoughts are logical and goal oriented. There is no evidence of thought disorder. She does not report auditory or visual hallucinations. She was vague in regard to her presenting symptoms. She describes difficulty with appetite, memory, and word finding. She also reports anxiety and depressed mood. She reports a prior history of treatment for [facility] [address] [place] [address] CONSULTATION Name: SHEYLA CID Room #: 513-P [facility] ..#: [id number] Admission: 09/21/21 Attend Phys: Mckay Martin MD Discharge: 10/04/21 Date of : 37 Report #: [id number] depression. Performance on the MMSE 2 brief version was very low with a raw score of 12-16. She was 3/3 for initial registration, 3/5 for orientation to time, 5/[address] and 1/3 for immediate recall of 3 items after a brief time delay and distraction. Performance on the MMSE 2 standard version was in the borderline range with a raw score of 22/30, which is a T score of 32 and a percentile rank of 4. She was 2/5 for serial sevens, 2/2 for naming, 1/1 for repetition, 3/3 for auditory comprehension. She could read and follow a single command and write a sentence. The patient was unable to copy a simple geometric design. Deficits in visual spatial construction are noted. She also had trouble with motor dexterity and clock drawing; however, she was able to accurately indicate hand placement. This type of presentation suggests a neurocognitive disorder with subcortical features affecting motor movement as well as visual spatial processing and attention/concentration. DIAGNOSTIC IMPRESSION: Major neurocognitive disorder (dementia), possibly with vascular features, without behavioral disturbance, mild severity. Major depressive disorder by history. RECOMMENDATIONS: The patient will likely require continued structure and supervision upon discharge. Indicated is assistance in the management of medication, finances and nutrition. Use of an antidepressant medication as well as medication to support memory may also be of benefit to assist in her overall adjustment. Verbal praise and complements about participation in therapies along with the use of compensatory strategies as needed to help support her achievement during therapies upon return to [facility]. Thank you very much for allowing me to provide the consultation on this patient. <ELECTRONICALLY SIGNED> By: Salvador Jones, PhD 10/06/21 [id number] Salvador Jones, PhD /nt
== END 2021-10-04 12:50 | disposition home health service (06) | DRG 811 ==
PROVIDERS: Nurse Practitioner; ADMIT Physical Medicine & Rehabilitation; ATTEND Physical Medicine & Rehabilitation
PROC: 30233N1 Transfusion of Nonautologous Red Blood Cells into Peripheral Vein, Percutaneous Approach (ICD-10-PCS; principal; 2021-09-27)
DX: D50.9 Iron deficiency anemia, unspecified (principal); U07.1 COVID-19; N18.4 Chronic kidney disease, stage 4 (severe); N17.9 Acute kidney failure, unspecified; E44.1 Mild protein-calorie malnutrition; R53.81 Other malaise; E78.5 Hyperlipidemia, unspecified; K21.9 Gastro-esophageal reflux disease without esophagitis; F32.9 Major depressive disorder, single episode, unspecified; F03.90 Unspecified dementia, unspecified severity, without behavioral disturbance, psychotic disturbance, mood disturbance, and anxiety; I48.91 Unspecified atrial fibrillation; J44.9 Chronic obstructive pulmonary disease, unspecified; Z96.652 Presence of left artificial knee joint; F01.50 Vascular dementia, unspecified severity, without behavioral disturbance, psychotic disturbance, mood disturbance, and anxiety; E03.9 Hypothyroidism, unspecified; R07.89 Other chest pain; Z66 Do not resuscitate; M79.671 Pain in right foot; K22.70 Barrett's esophagus without dysplasia; I12.9 Hypertensive chronic kidney disease with stage 1 through stage 4 chronic kidney disease, or unspecified chronic kidney disease; E53.8 Deficiency of other specified B group vitamins; I34.0 Nonrheumatic mitral (valve) insufficiency; Z88.2 Allergy status to sulfonamides; Z88.6 Allergy status to analgesic agent; Z91.040 Latex allergy status; Z86.73 Personal history of transient ischemic attack (TIA), and cerebral infarction without residual deficits; Z90.710 Acquired absence of both cervix and uterus; Z90.49 Acquired absence of other specified parts of digestive tract; Z79.01 Long term (current) use of anticoagulants; Z86.718 Personal history of other venous thrombosis and embolism; Z86.16 Personal history of COVID-19; Z68.27 Body mass index [BMI] 27.0-27.9, adult; Z86.711 Personal history of pulmonary embolism
CPT/HCPCS: 10112